=== PATIENT | male | born 1945 | race Caucasian/White ===

== ENCOUNTER 2018-08-12 15:09 | Emergency (ER) | payer MEDICARE ==
[~2018-08-12] VITALS: Ht 190.5 cm; Wt 158.8 kg
[~2018-08-12 15:09] MED LIST: ALLOPURINOL100 MG PO; ASPIRIN81 MG PO; DAILY VITAMIN1 EAC3 PO; FISH OIL 1,2001 EACH; GLUCOSAMINE &1 EAC1 PO; HYDROCHLOROTH12.5 M1 PO; TOPROL XL50 MG PO; unknown antibiotic
--- OUTSIDE RECORDS SUMMARY | 2018-08-12 15:14 | XMS REPORT | Summary of Care ---
Author Author [facility] Address Unknown Phone Unavailable Encounter DESIRE Miranda(DORIS) [id number] Date(s): 06/22/17 - 07/21/17 [facility] [place] Encounter Diagnosis Unilateral primary osteoarthritis, right hip (Final) - 07/25/17 Pain in right hip (Final) - Stiffness of right hip, not elsewhere classified (Final) - Muscle weakness (generalized) (Final) - Unsteadiness on feet (Final) - Other abnormalities of gait and mobility (Final) - Muscle weakness (generalized) (Final) - Unsteadiness on feet (Final) - Other abnormalities of gait and mobility (Final) - Discharge Disposition: Home or Self Care Attending Physician: Richard hSaw MD Vital Signs No data available for this section Problem List Condition Effective Dates Status Health Status Informant HTN Active (hypertension)(Confi rmed) Irregular heart Active beat(Confirmed) Nephrolithiasis(Conf Active irmed) Colon Resolved cancer(Confirmed) Obesity(Confirmed) Active RELL (obstructive Active sleep apnea)(Confirmed) Numbness and Active tingling of foot(Confirmed) Allergies, Adverse Reactions, Alerts Substance Reaction Severity Status NKDA Active Medications No data available for this section Results No data available for this section Immunizations Given and Recorded Vaccine Date Status Refusal Reason pneumococcal 13-valent vaccine 02/24/17 Given Procedures Procedure Date Related Diagnosis Body Site Status Laparoscopic sleeve gastrectomy1 02/23/17 Completed Arthroscopic knee operation2 Completed Back fusion Completed Colonoscopy Completed Foot joint operations3 Completed 1with EGD 2BILATERAL 3BILATERAL HAMMER TOES Social History Social History Type Response Exercise 1 Alcohol Past2 Smoking Status Former smoker; Type: Cigarettes; Previous treatment: None; Exposure to Tobacco Smoke None; Cigarette Smoking Last 365 Days No; Reg Smoking Cessation Counseling No; Other Tobacco Frequency quit 2011; entered on: 09/19/17 1WALKS DOGS DAILY. DENIES SOB/CP WITH EXERTION 2CANNOT DRINK CARBONATED BEVERAGES D/T GASTRIC SLEEVE Assessment and Plan No data available for this section
--- OUTSIDE RECORDS SUMMARY | 2018-08-12 15:14 | XMS REPORT | Summary of Care ---
Author Author [facility] Organization [facility] Address Unknown Phone Unavailable Encounter DESIRE Miranda(DORIS) [id number] Date(s): 02/23/17 - 02/24/17 [facility] [address] [facility] provided by [facility] [place] [address]- Discharge Disposition: Home or Self Care Attending Physician: Malik Casillas MD Admitting Physician: Malik Casillas MD Referring Physician: Malik Casillas MD Vital Signs 1 2 3 Most recent to oldest [Reference Range]: 187.96 cm (02/23/17 1:03 PM) 187.96 cm (02/10/17 1:24 PM) Height 97.6 DegF (02/24/17 5:26 AM) 97.6 DegF (02/24/17 12:14 AM) 97.6 DegF (02/23/17 8:03 PM) Temperature Oral [96.4-99.1 DegF] 123/73 mmHg (02/24/17 8:29 AM) 133/75 mmHg (02/24/17 5:26 AM) 134/72 mmHg (02/24/17 12:14 AM) Blood Pressure [90-140/60-90 mmHg] 18 BRMIN (02/24/17 8:29 AM) 18 BRMIN (02/24/17 5:26 AM) 18 BRMIN (02/24/17 12:14 AM) Respiratory Rate [14-20 BRMIN] 57 bpm *LOW* (02/24/17 8:29 AM) 61 bpm (02/24/17 5:26 AM) 65 bpm (02/24/17 12:14 AM) Peripheral Pulse Rate [60-100 bpm] 155.682 kg (02/23/17 1:03 PM) 155.682 kg (02/23/17 6:43 AM) Weight 44.07 m2 (02/23/17 1:03 PM) 44.07 m2 (02/23/17 6:43 AM) Body Mass Index Problem List Condition Effective Dates Status Health Status Informant HTN Active (hypertension)(Confi rmed) Irregular heart Resolved beat(Confirmed) Nephrolithiasis(Conf Active irmed) Obesity(Confirmed) Active RELL (obstructive Active sleep apnea)(Confirmed) Apnea, Resolved sleep(Confirmed) Allergies, Adverse Reactions, Alerts Substance Reaction Severity Status NKDA Active Medications acetaminophen 1,000 mg, 31.23 mL, Route: PO, Drug form: LIQ, Q6Hnow, Dosing Weight 155.682, kg , Start date: 02/23/17 9:00:00 CDT, Duration: 30 day, Stop date: 03/25/17 3:00:0 0 CDT Notes: Max [id number]/day (4 gm/day). (Same as: Tylenol) Start Date: 02/23/17 Stop Date: 02/24/17 Status: Discontinued acetaminophen (ANES) Route: IV, Drug form: INJ, ONCE, Stop date: 02/23/17 8:33:00 CDT Start Date: 02/23/17 Stop Date: 02/23/17 Status: Completed Aleve See Instructions, 220 mg PO, 0 Refill(s) Start Date: 02/23/17 Stop Date: 02/24/17 Status: Discontinued ANES flumazenil 0.2 mg, 2 mL, Route: IVP, Drug form: INJ, PRN, Dosing Weight 155.682, kg, PRN Be nzodiazepine Reversal, Initial dose, Start date: 02/23/17 10:20:00 CDT, Duration : 30 day, Stop date: 03/25/17 10:19:00 CDT Notes: (Same as: Romazicon) Start Date: 02/23/17 Stop Date: 02/23/17 Status: Discontinued ANES HYDROmorphone 0.5 mg, 0.25 mL, Route: IVP, Drug form: INJ, Q5Min, Dosing Weight 155.682, kg, P RN Pain Score 7-10, Start date: 02/23/17 10:20:00 CDT, Duration: 4 doses or time s, Stop date: Limited # of times Notes: Same as: Dilaudid Start Date: 02/23/17 Stop Date: 02/23/17 Status: Discontinued ANES midazolam 1 mg, 1 mL, Route: IVP, Drug form: INJ, Q5Min, Dosing Weight 155.682, kg, PRN An xiety, Start date: 02/23/17 10:20:00 CDT, Duration: 2 doses or times, Stop date: Limited # of times Notes: (Same as: Ni) MEDICATION WASTE Product Size: 2 mgProduct Was cally: ___ mg Start Date: 02/23/17 Stop Date: 02/23/17 Status: Discontinued ANES naloxone 0.4 mg, 1 mL, Route: IVP, Drug form: INJ, Q2MIN, Dosing Weight 155.682, kg, PRN Narcotic Reversal, Start date: 02/23/17 10:20:00 CDT, Duration: 8 doses or times , Stop date: Limited # of times Notes: Same as Narcan Start Date: 02/23/17 Stop Date: 02/23/17 Status: Discontinued ANES ondansetron 4 mg, 2 mL, Route: IVP, Drug form: INJ, ONCE, Dosing Weight 155.682, kg, PRN Oswald sea & Vomiting, Start date: 02/23/17 10:20:00 CDT Notes: (Same as: Carito) MEDICATION WASTE Product Size: 4 mgProduct Was cally: ___ mg Start Date: 02/23/17 Stop Date: 02/23/17 Status: Discontinued ANES oxyCODONE 5 mg, 1 tab, Route: PO, Drug form: TAB, Q4H, Dosing Weight 155.682, kg, PRN Pain Score 4-6, Start date: 02/23/17 10:20:00 CDT, Duration: 30 day, Stop date: 02/26 10:19:00 CDT Notes: (Same as: Roxicodone) Start Date: 02/23/17 Stop Date: 02/23/17 Status: Discontinued cefOXitin (ANES) Route: IV, Drug form: INJ, ONCE, Stop date: 02/23/17 8:33:00 CDT Start Date: 02/23/17 Stop Date: 02/23/17 Status: Completed CeleBREX 200 mg, 2 cap, Route: PO, Drug form: CAP, PRE OP, Start date: 02/23/17 7:00:00 C DT, Duration: 1 day, Stop date: 02/24/17 6:59:00 CDT Notes: NSAID. Please check indication. Not for seizure. (Same As: CeleBREX) Start Date: 02/23/17 Stop Date: 02/23/17 Status: Completed CeleBREX 200 mg, 1 cap, Route: PO, Drug form: CAP, Q12H, Dosing Weight 155.682, kg, Start date: 02/23/17 21:00:00 CDT, Duration: 30 day, Stop date: 03/25/17 9:00:00 CDT Notes: NSAID. Please check indication. Not for seizure. (Same As: CeleBREX) Start Date: 02/23/17 Stop Date: 02/24/17 Status: Discontinued CeleBREX 200 mg, 1 cap, Route: PO, Drug form: CAP, BID, Dosing Weight 155.682, kg, Start date: 02/23/17 9:00:00 CDT, Duration: 30 day, Stop date: 03/24/17 17:00:00 CDT Notes: NSAID. Please check indication. Not for seizure. (Same As: CeleBREX) Start Date: 02/23/17 Stop Date: 02/23/17 Status: Discontinued celecoxib 200 mg, Route: PO, [id number], Dosing Weight 155.682, kg, Start date: 02/23/17 9:00 :00 CDT, Duration: 30 day, Stop date: 03/24/17 21:00:00 CDT Start Date: 02/23/17 Stop Date: 02/23/17 Status: Deleted dexamethasone (ANES) Route: IV, Drug form: INJ, ONCE, Stop date: 02/23/17 8:48:00 CDT Start Date: 02/23/17 Stop Date: 02/23/17 Status: Completed Emend 40 mg, 1 cap, Route: PO, Drug form: CAP, ONCE, Dosing Weight 155.682, kg, Start date: 02/23/17 6:44:00 CDT, Stop date: 02/23/17 6:44:00 CDT Notes: Same as: Emendrestricted to the Hematology/Oncology service for high and moderate emetogenic regimen according to ASCO Guidelines PassthroughOnly for Ch emotherapy-Induced nausea & vomiting Start Date: 02/23/17 Stop Date: 02/23/17 Status: Completed enoxaparin 30 mg, 0.3 mL, Route: SUB-Q, Drug form: INJ, [id number], Dosing Weight 155.682, kg , Start date: 02/23/17 21:00:00 CDT, Duration: 30 day, Stop date: 03/25/17 9:00: 00 CDT Notes: (Same as: Lovenox) Start Date: 02/23/17 Stop Date: 02/24/17 Status: Discontinued fentaNYL (ANES) Route: IV, Drug form: INJ, ONCE, Stop date: 02/23/17 9:05:00 CDT Start Date: 02/23/17 Stop Date: 02/23/17 Status: Completed gabapentin 300 mg, 6 mL, Route: PO, Drug form: SOLN, Q8Hnow, Dosing Weight 155.682, kg, Sta rt date: 02/23/17 9:00:00 CDT, Duration: 30 day, Stop date: 03/25/17 1:00:00 CDT Notes: (Same as: Neurontin) Start Date: 02/23/17 Stop Date: 02/24/17 Status: Discontinued gabapentin 600 mg oral tablet 600 mg, 1 tab, Route: PO, TID, Dosing Weight 155.682, kg, Start date: 02/23/17 9 :00:00 CDT, Duration: 30 day, Stop date: 03/24/17 17:00:00 CDT Start Date: 02/23/17 Stop Date: 02/23/17 Status: Discontinued glycopyrrolate (ANES) Route: IV, Drug form: INJ, ONCE, Stop date: 02/23/17 8:54:00 CDT Start Date: 02/23/17 Stop Date: 02/23/17 Status: Completed heparin 5,000 unit, 1 mL, Route: SUB-Q, Drug form: INJ, PRE OP, Start date: 02/23/17 7:0 0:00 CDT, Duration: 1 day, Stop date: 02/24/17 6:59:00 CDT Notes: porcine heparin Start Date: 02/23/17 Stop Date: 02/23/17 Status: Completed hydromorphone (ANES) Route: IV, Drug form: INJ, ONCE, Stop date: 02/23/17 10:05:00 CDT Start Date: 02/23/17 Stop Date: 02/23/17 Status: Completed ketOROLAC (ANES) IV, ONCE Start Date: 02/23/17 Stop Date: 02/23/17 Status: Completed Lactated Ringers 1,000 mL 1,000 mL, Rate: 125 ml/hr, Infuse over: 8 hr, Route: IV, Dosing Weight 155.682 k g, Total Volume: 1,000, Start date: 02/23/17 10:00:00 CDT, Duration: 30 day, Sto p date: 03/25/17 9:59:00 CDT Start Date: 02/23/17 Stop Date: 02/24/17 Status: Discontinued lidocaine (ANES) Route: IV, Drug form: INJ, ONCE, Stop date: 02/23/17 9:05:00 CDT Start Date: 02/23/17 Stop Date: 02/23/17 Status: Completed LR 1000 mL INJ (ANES) Route: IV, Total Volume: 1,000, Start date: 02/23/17 7:40:00 CDT, Stop date: 8:40:00 CDT Start Date: 02/23/17 Stop Date: 02/23/17 Status: Completed magnesium sulfate (ANES) (ANES) Route: IV, Drug form: INJ, Start date: 02/23/17 8:30:00 CDT, Stop date: 02/23/17 9:30:00 CDT Start Date: 02/23/17 Stop Date: 02/23/17 Status: Completed Mefoxin 2 gm, Route: IVPB, Drug form: INJ, PRE OP, Start date: 02/23/17 7:00:00 CDT, Dur ation: 1 day, Stop date: 02/24/17 6:59:00 CDT, ABX Indication: Surgical Prophyla xis Notes: (Same As: Mefoxin) MEDICATION WASTE Product Size: 2000 mgProduct Wasted: ___ mg Start Date: 02/23/17 Stop Date: 02/23/17 Status: Completed metoprolol (ANES) Route: IV, Drug form: INJ, ONCE, Stop date: 02/23/17 10:21:00 CDT Start Date: 02/23/17 Stop Date: 02/23/17 Status: Completed midazolam (ANES) Route: IV, Drug form: SOLN, ONCE, Stop date: 02/23/17 9:05:00 CDT Start Date: 02/23/17 Stop Date: 02/23/17 Status: Completed neostigmine (ANES) Route: IV, Drug form: INJ, ONCE, Stop date: 02/23/17 10:05:00 CDT Start Date: 02/23/17 Stop Date: 02/23/17 Status: Completed Neurontin 300 mg, 1 cap, Route: PO, Drug form: CAP, PRE OP, Start date: 02/23/17 7:00:00 C DT, Duration: 1 day, Stop date: 02/24/17 6:59:00 CDT Notes: (Same as: Neurontin) Start Date: 02/23/17 Stop Date: 02/23/17 Status: Completed Ofirmev 1 gm, 100 mL, Route: IV, Drug form: INJ, PRE OP, Start date: 02/23/17 7:00:00 CD T, Duration: 1 day, Stop date: 02/24/17 6:59:00 CDT Notes: Infuse over 15 minutesDo not exceed 4gm/day of acetaminophen MEDICAT ION WASTE Product Size: 1000 mgProduct Wasted: ___ mg Start Date: 02/23/17 Stop Date: 02/23/17 Status: Discontinued ondansetron 4 mg, 2 mL, Route: IVP, Drug form: INJ, Q6H, Dosing Weight 155.682, kg, Start da te: 02/23/17 12:00:00 CDT, Duration: 30 day, Stop date: 03/25/17 6:00:00 CDT Notes: (Same as: Zofran) MEDICATION WASTE Product Size: 4 mgProduct Was cally: ___ mg Start Date: 02/23/17 Stop Date: 02/24/17 Status: Discontinued ondansetron (ANES) Route: IV, Drug form: INJ, ONCE, Stop date: 02/23/17 10:05:00 CDT Start Date: 02/23/17 Stop Date: 02/23/17 Status: Completed phenylephrine (ANES) Route: IV, Drug form: INJ, ONCE, Stop date: 02/23/17 8:39:00 CDT Start Date: 02/23/17 Stop Date: 02/23/17 Status: Completed pneumococcal 13-valent vaccine 0.5 mL, Route: IM, Drug Form: INJ, Daily, Start date: 02/24/17 9:00:00 CDT, Dura tion: 1 doses or times, Stop date: 02/24/17 9:00:00 CDT Notes: Shake well prior to use (Same as: Prevnar 13) Start Date: 02/24/17 Stop Date: 02/24/17 Status: Completed propofol (ANES) Route: IV, Drug form: INJ, ONCE, Stop date: 02/23/17 9:05:00 CDT Start Date: 02/23/17 Stop Date: 02/23/17 Status: Completed Protonix 40 mg, Route: IVP, Drug form: INJ, Daily, Dosing Weight 155.682, kg, Start date: 02/24/17 16:00:00 CDT, Duration: 30 day, Stop date: 03/26/17 9:00:00 CDT Notes: For IV push reconstitute with 10 ml 0.9% sodium chloride and push over 2 minutes. (Same as: Protonix) Start Date: 02/24/17 Stop Date: 02/24/17 Status: Canceled remove patch 1 patch, Route: TOP, Drug form: ERFILM, ONCALL, Start date: 02/23/17 7:00:00 CDT , Duration: 30 day, Stop date: 03/25/17 6:59:00 CDT Notes: Remove old patch before application of new patch. Start Date: 02/23/17 Stop Date: 02/24/17 Status: Discontinued rocuronium (ANES) Route: IV, Drug form: INJ, ONCE, Stop date: 02/23/17 9:05:00 CDT Start Date: 02/23/17 Stop Date: 02/23/17 Status: Completed scopolamine 1 patch, Route: TOP, Drug form: ERFILM, PRE OP, Start date: 02/23/17 7:00:00 CDT , Duration: 1 day, Stop date: 02/24/17 6:59:00 CDT Notes: Change patch every 72 hours (Same as: Transderm-Scop) Start Date: 02/23/17 Stop Date: 02/24/17 Status: Discontinued scopolamine 1.5 mg transdermal film 1 patch, Route: TOP, Drug Form: ERFILM, Dosing Weight 155.682, kg, PRE OP, Start date: 02/23/17 7:00:00 CDT, Duration: 30 day, Stop date: 03/25/17 6:59:00 CDT Start Date: 02/23/17 Stop Date: 02/23/17 Status: Completed sodium chloride 0.9% 100 ml INJ (ANES) + dexmedetomidine (ANES) (ANES) Route: IV, Drug form: INJ, Start date: 02/23/17 8:00:00 CDT, Stop date: 02/23/17 9:00:00 CDT Start Date: 02/23/17 Stop Date: 02/23/17 Status: Completed sodium chloride 0.9% 100 ml INJ (ANES) + ketAMINE (ANES) (ANES) Route: IV, Drug form: INJ, Start date: 02/23/17 8:00:00 CDT, Stop date: 02/23/17 9:00:00 CDT Start Date: 02/23/17 Stop Date: 02/23/17 Status: Deleted sodium chloride 0.9% 100 ml INJ (ANES) + ketAMINE (ANES) (ANES) Route: IV, Drug form: INJ, Start date: 02/23/17 8:00:00 CDT, Stop date: 02/23/17 9:00:00 CDT Start Date: 02/23/17 Stop Date: 02/23/17 Status: Completed Toprol-XL 50 mg oral tablet, extended release 50 mg, 1 tab, Route: PO, Drug form: ERTAB, Daily, Start date: 02/24/17 9:00:00 C DT, Duration: 30 day, Stop date: 03/25/17 9:00:00 CDT Notes: (Same as: Toprol XL) May split tab, but do not crush. Start Date: 02/24/17 Stop Date: 02/24/17 Status: Discontinued tramadol 100 mg, 2 tab, Route: PO, Drug form: TAB, Q6H, Dosing Weight 155.682, kg, PRN Pa in Score 6-10, Start date: 02/23/17 8:22:00 CDT, Duration: 30 day, Stop date: 8:21:00 CDT Notes: Not to exceed 400mg/day. (Same As: Ultram) Start Date: 02/23/17 Stop Date: 02/24/17 Status: Discontinued tramadol 50 mg oral tablet 50 mg=1 tab, PO, Q6H, PRN Pain Score 6-10, X 5 day, # 20 tab, 0 Refill(s) Start Date: 02/24/17 Stop Date: 03/01/17 Status: Ordered Tylenol with Codeine 120 mg-12 mg/5 mL oral liquid 15 ml, PO, Q6H, PRN Pain, X 7 day, # 420 mL, 0 Refill(s) Start Date: 02/24/17 Stop Date: 03/03/17 Status: Ordered Zofran ODT 4 mg oral tablet, disintegrating 4 mg=1 tab, PO, BID, PRN Nausea and Vomiting, Dissolve tab under tongue, # 14 ta b, 0 Refill(s) Start Date: 02/24/17 Stop Date: 03/03/17 Status: Ordered Results BLOOD BANK RESULTS Most recent to 1 oldest [Reference Range]: ABO/Rh A POS *Unknown* (02/23/17 5:52 AM) Antibody Scrn Negative (02/23/17 5:52 AM) ELECTROLYTES Most recent to 1 2 oldest [Reference Range]: Sodium Lvl [135-145 139 mEq/L 142 mEq/L mEq/L] (02/24/17 4:25 AM) (02/10/17 1:55 PM) Potassium Lvl 3.9 mEq/L 4.1 mEq/L [3.5-5.1 mEq/L] (02/24/17 4:25 AM) (02/10/17 1:55 PM) Chloride Lvl [95-109 107 mEq/L 103 mEq/L mEq/L] (02/24/17 4:25 AM) (02/10/17 1:55 PM) CO2 [24-32 mEq/L] 24 mEq/L 29 mEq/L (02/24/17 4:25 AM) (02/10/17 1:55 PM) AGAP [10.0-20.0 11.9 mEq/L 14.1 mEq/L mEq/L] (02/24/17 4:25 AM) (02/10/17 1:55 PM) CHEM PANEL Most recent to 1 2 oldest [Reference Range]: Creatinine Lvl 0.80 mg/dL 0.84 mg/dL [0.50-1.40 mg/dL] (02/24/17 4:25 AM) (02/10/17 1:55 PM) eGFR 91 mL/min/1.73m2 1 88 mL/min/1.73m2 2 *NA* *NA* (02/24/17 4:25 AM) (02/10/17 1:55 PM) BUN [7-22 mg/dL] 15 mg/dL 19 mg/dL (02/24/17 4:25 AM) (02/10/17 1:55 PM) B/C Ratio [6-25] 23 (02/10/17 1:55 PM) Glucose Lvl [70-99 123 mg/dL 68 mg/dL mg/dL] *HI* *LOW* (02/24/17 4:25 AM) (02/10/17 1:55 PM) Total Protein 7.4 g/dL [6.4-8.4 g/dL] (02/10/17 1:55 PM) Albumin Lvl [3.5-5.0 3.7 g/dL g/dL] (02/10/17 1:55 PM) Globulin [2.7-4.2 3.7 g/dL g/dL] (02/10/17 1:55 PM) A/G Ratio [0.7-1.6] 1.0 (02/10/17 1:55 PM) Calcium Lvl 8.4 mg/dL 8.8 mg/dL [8.5-10.5 mg/dL] *LOW* (02/10/17 1:55 PM) (02/24/17 4:25 AM) ALT [0-65 unit/L] 27 unit/L (02/10/17 1:55 PM) AST [0-37 unit/L] 16 unit/L (02/10/17 1:55 PM) Alk Phos [39-136 76 unit/L unit/L] (02/10/17 1:55 PM) Bili Total [0.2-1.3 0.5 mg/dL mg/dL] (02/10/17 1:55 PM) 1Result Comment: The eGFR is calculated using the CKD-EPI formula. In most young, healthy individuals the eGFR will be >90 mL/min/1.73m2. The eGFR declines with age. An eGFR of 60-89 may be normal in some populations, particularly the elderly, for whom the CKD-EPI formula has not been extensively validated. Use of the eGFR is not recommended in the following populations: Individuals with unstable creatinine concentrations, including patients and those with serious co-morbid conditions. Patients with extremes in muscle mass or diet. The data above are obtained from the National Kidney Disease Education Program ( NKDEP) which additionally recommends that when the eGFR is used in patients with extremes of body mass index for purposes of drug dosing, the eGFR should be mul tiplied by the estimated BMI. 2Result Comment: The eGFR is calculated using the CKD-EPI formula. In most young, healthy individuals the eGFR will be >90 mL/min/1.73m2. The eGFR declines with age. An eGFR of 60-89 may be normal in some populations, particularly the elderly, for whom the CKD-EPI formula has not been extensively validated. Use of the eGFR is not recommended in the following populations: Individuals with unstable creatinine concentrations, including patients and those with serious co-morbid conditions. Patients with extremes in muscle mass or diet. The data above are obtained from the National Kidney Disease Education Program ( NKDEP) which additionally recommends that when the eGFR is used in patients with extremes of body mass index for purposes of drug dosing, the eGFR should be mul tiplied by the estimated BMI. HEMATOLOGY Most recent to 1 2 oldest [Reference Range]: WBC [3.7-10.4 K/CMM] 11.9 K/CMM 8.6 K/CMM *HI* (02/10/17 1:55 PM) (02/24/17 4:25 AM) RBC [4.70-6.10 4.92 M/CMM 5.57 M/CMM M/CMM] (02/24/17 4:25 AM) (02/10/17 1:55 PM) Hgb [14.0-18.0 g/dL] 15.1 g/dL 17.1 g/dL (02/24/17 4:25 AM) (02/10/17 1:55 PM) Hct [42.0-54.0 %] 44.4 % 49.6 % (02/24/17 4:25 AM) (02/10/17 1:55 PM) MCV [80.0-94.0 fL] 90.3 fL 89.0 fL (02/24/17 4:25 AM) (02/10/17 1:55 PM) MCH [27.0-31.0 pg] 30.6 pg 30.8 pg (02/24/17 4:25 AM) (02/10/17 1:55 PM) MCHC [32.0-36.0 33.9 g/dL 34.6 g/dL g/dL] (02/24/17 4:25 AM) (02/10/17 1:55 PM) RDW [11.5-14.5 %] 13.4 % 13.3 % (02/24/17 4:25 AM) (02/10/17 1:55 PM) Platelet [133-450 186 K/CMM 196 K/CMM K/CMM] (02/24/17 4:25 AM) (02/10/17 1:55 PM) MPV [7.4-10.4 fL] 7.5 fL 8.0 fL (02/24/17 4:25 AM) (02/10/17 1:55 PM) Segs [45.0-75.0 %] 72.8 % 51.0 % (02/24/17 4:25 AM) (02/10/17 1:55 PM) Bands [0.0-11.0 %] 0.0 % (02/10/17 1:55 PM) Lymphocytes 15.8 % 38.0 % [20.0-40.0 %] *LOW* (02/10/17 1:55 PM) (02/24/17 4:25 AM) Atypical Lymphs 0.0 % [<=0.0 %] (02/10/17 1:55 PM) Monocytes [2.0-12.0 11.2 % 9.0 % %] (02/24/17 4:25 AM) (02/10/17 1:55 PM) Eosinophils [0.0-4.0 1.0 % %] (02/10/17 1:55 PM) Basophils [0.0-1.0 0.2 % 1.0 % %] (02/24/17 4:25 AM) (02/10/17 1:55 PM) Segs-Bands # 8.7 K/CMM 4.4 K/CMM [1.5-8.1 K/CMM] *HI* (02/10/17 1:55 PM) (02/24/17 4:25 AM) Lymphocytes # 1.9 K/CMM 3.3 K/CMM [1.0-5.5 K/CMM] (02/24/17 4:25 AM) (02/10/17 1:55 PM) Monocytes # [0.0-0.8 1.3 K/CMM 0.8 K/CMM K/CMM] *HI* (02/10/17 1:55 PM) (02/24/17 4:25 AM) Eosinophils # 0.1 K/CMM [0.0-0.5 K/CMM] (02/10/17 1:55 PM) Basophils # [0.0-0.2 0.1 K/CMM K/CMM] (02/10/17 1:55 PM) Tot Cell Ct 100 *NA* (02/10/17 1:55 PM) RBC Morph Normal (02/10/17 1:55 PM) Plt Morph Normal (02/10/17 1:55 PM) Immunizations Given and Recorded Vaccine Date Status Refusal Reason pneumococcal 13-valent vaccine 02/24/17 Given Procedures Procedure Date Related Diagnosis Body Site Laparoscopic sleeve gastrectomy1 02/23/17 Arthroscopic knee operation Back fusion Colonoscopy Foot joint operations 1with EGD Social History Social History Type Response Alcohol Current, Type Beer. Frequency: 1-2 times per month. Smoking Status Former smoker; Type: Cigarettes; Previous treatment: None; Exposure to Tobacco Smoke None; Other Tobacco Frequency quit 2011; Cigarette Smoking Last 365 Days Yes; Reg Smoking Cessation Counseling No Assessment and Plan Extracted from: Title: Clinical Document Author: Malik Casillas MD Date: 02/23/17 PREOPERATIVE DIAGNOSIS: 1. Morbid obesity. 2. Obstructive sleep apnea. POSTOPERATIVE DIAGNOSIS: 1. Morbid obesity. 2. Obstructive sleep apnea. PROCEDURE: 1. Laparoscopic sleeve gastrectomy. 2. EGD. SURGEON: Dr. Malik Casillas. TOP STEEP TENDER: Dr. Jomar Linder. INDICATIONS FOR PROCEDURE: This is a patient with a long history of morbid obesity who had a BMI of 46 upon consultation with our group. The patient has failed medical weight management and, after going through the lengthy the educational process at our clinic, has elected to undergo a sleeve gastrectomy. PROCEDURE IN DETAIL: Because no qualified resident was available, I requested a fellow assist in the case. The patient was brought to the operating room, placed supine on the operating table, and was then sedated, intubated, and placed under general endotracheal anesthesia. The patient s abdomen was prepped and draped in standard surgical fashion and then entered using a 5-mm Optiview port in the right subcostal margin. Pneumoperitoneum was achieved and the entire abdomen was inspected with no gross abnormality identified. Additional trocars were placed with a 5-mm trocar just left of the midline superior to the umbilicus. A 15-mm trocar just right of the midline superior to the umbilicus and a 5-mm lateral right trocar. Attention was first turned to the greater curvature where the omentum was systematically divided from the gastric curvature using an energy device. This was carried out superiorly to the cardia where attention was then turned to the posterior adhesions continuing the dissection from inferior to superior. I then completed taking down the short gastrics and the posterior lateral gastric adhesions. A 36-Colombian sizing gastric tube was inserted into the stomach. Once this was complete, I started with the first staple fire without buttress using a Medtronic tristapler at * cm from the antrum. The sleeve gastrectomy was created with sequential staple fires. The last staple fire was conducted just lateral to the angle of His. The stomach was then removed through the 15-mm port site after mild dilation. The site was then sutured closed using a single interrupted 0 Vicryl suture passed with a Dontrell-Nicholas in a [id number] fashion. We then placed the sleeve gastrectomy under water and inserted an EGD through the esophagus and into the gastric sleeve. There was no air leak identified. The sleeve was a nice tubular structure approximately the size of the esophagus throughout the entire gastrectomy. All incisions were closed using 4-0 Monocryl and covered in Dermabond. The patient was awoken from anesthesia, extubated, and brought to the recovery room in good condition. INTRAVENOUS FLUIDS: Please see anesthesia records for IV fluids. ESTIMATED BLOOD LOSS: Min. COMPLICATIONS: None. DISPOSITION: Good to the recovery room.
--- OUTSIDE RECORDS SUMMARY | 2018-08-12 15:14 | XMS REPORT | Summary of Care ---
Author Author [facility] Organization [facility] Address Unknown Phone Unavailable Encounter DESIRE Miranda(DORIS) [id number] Date(s): 06/06/17 - 06/06/17 [facility] [address] [address]- [phone] Discharge Disposition: Home or Self Care Attending Physician: Richard Shaw MD Referring Physician: Richard Shaw MD Vital Signs Most recent to 1 2 oldest [Reference Range]: Height 187.96 cm (06/06/17 11:00 AM) Blood Pressure 137/81 mmHg 134/85 mmHg [90-140/60-90 mmHg] (06/06/17 11:38 AM) (06/06/17 11:00 AM) Respiratory Rate 17 BRMIN 18 BRMIN [14-20 BRMIN] (06/06/17 11:38 AM) (06/06/17 11:00 AM) Peripheral Pulse 61 bpm 62 bpm Rate [60-100 bpm] (06/06/17 11:38 AM) (06/06/17 11:00 AM) Weight 129.091 kg (06/06/17 11:00 AM) Body Mass Index 36.54 m2 (06/06/17 11:00 AM) Problem List Condition Effective Dates Status Health [...] Procedures Procedure Date Related Diagnosis Body Site Injection procedure for hip arthrography; 06/06/17 without anesthesia Laparoscopic sleeve gastrectomy1 02/23/17 Arthroscopic knee operation Back fusion Colonoscopy Foot joint operations 1with EGD Social History Social History Type Response Alcohol Current, Type Beer. Frequency: 1-2 times per month. Smoking Status Former smoker; Type: Cigarettes; Previous treatment: None; Exposure to Tobacco Smoke None; Cigarette Smoking Last 365 Days Yes; Reg Smoking Cessation Counseling No; Other Tobacco Frequency quit 2011; Assessment and Plan No data available for this section
--- OUTSIDE RECORDS SUMMARY | 2018-08-12 15:14 | XMS REPORT | Continuity of Care Document ---
Author Author [facility] Organization Interface Address Unknown Phone Unavailable Problems Problem Status Onset Date Classification Date Reported Comments Source LEFT KNEE Active 04/24/2018 [facility] [place] RIGHT KNEE OSTEOARTHRITIS Active 03/09/2018 [facility] RIGHT KNEE Active 01/23/2018 [facility] KNEE OSTEOARTHRITIS Active 01/15/2018 [facility] Unilateral primary osteoarthritis, right hip 10/05/2017 12/27[facility] OSTEOAR[facility]RITIS R HIP Active 08/17/2017 [facility] M25.551 Active 06/04/2017 [facility] M25.551 RIGHT HIP PAIN Active 06/04/2017 [facility] MORBID OBESITY Active 11/15/2016 [facility] UNK Active 08/17/2016 [facility] RIGHT HIP Active 05/26/2015 [facility] [place] HTN (<span [id number]">Confirmed</span>) Active Problem 12/27/2017 [facility] Irregular heart beat Active Problem 12/27/2017 [facility] [place],[facility] Nephrolithiasis Active Problem 12/27/2017 [facility] Obesity Active Problem 12/27/2017 [facility] RELL (<span ID="[id number]">Confirmed</span>) Active Problem 12/27/2017 [facility] Apnea, sleep Resolved Problem 06/09/2017 [facility] Unsteadiness on feet 11/28/2017 [facility] [place] Other abnormalities of gait and mobility 11/28/2017 [facility] [place] Pain in right hip 11/28/2017 [facility] [place] Stiffness of right hip, not elsewhere classified 11/28/2017 [facility] [place] Muscle weakness 11/28/2017 [facility] [place] Morbid obesity due to excess calories 12/27/2017 [facility] Acute posthemorrhagic anemia 12/27/2017 [facility] Body mass index 32.0-32.9, adult 12/27/2017 [facility] Obstructive sleep apnea (pediatric) 12/27/2017 [facility] Essential hypertension 12/27/2017 [facility] Osteophyte, right hip 12/27/2017 [facility] Bariatric surgery status 12/27/2017 [facility] Gastro-esophageal reflux disease without esophagitis 12/27/2017 [facility] Cardiac arrhythmia, unspecified 12/27/2017 [facility] Personal history of nicotine dependence 12/27/2017 [facility] Colon cancer Resolved Problem 12/27/2017 [facility] [place], [facility] Numbness and tingling of foot Active Problem 12/27/2017 [facility] [place], [facility] ENCOUNTER FOR SCREENING FOR MALIGNANT NE Active [facility] UNILATERAL PRIMARY OSTEOARTHRITIS, RIGHT Active [facility] [place] PAIN IN RIGHT HIP [facility] [place] STIFFNESS OF RIGHT HIP, NOT ELSEWHERE CL Active [facility] [place] UNSTEADINESS ON FEET Active [facility] [place] OTHER ABNORMALITIES OF GAIT AND MOBILITY Active [facility] [place] MUSCLE WEAKNESS (GENERALIZED) Active [facility] [place] UNILATERAL PRIMARY OSTEOARTHRITIS, RIGHT Active [facility] [place] STIFFNESS OF UNSPECIFIED JOINT, NOT ELSE Active [facility] [place] DIFFICULTY IN WALKING, NOT ELSEWHERE CLA Active [facility] [place] PRESENCE OF LEFT ARTIFICIAL KNEE JOINT Active [facility] [place] UNILATERAL PRIMARY OSTEOARTHRITIS, LEFT Active [facility] [place] PAIN IN LEFT KNEE Active [facility] [place] WEAKNESS Active [facility] [place] Medications Medication Details Route Status Patient Instructions Ordering Provider Order Date Source rivaroxaban 10 MG Oral Tablet [Xarelto] 10 mg=1 tab, PO, Daily, # 21 tab, 0 Refill(s) Active 09/21/2017 [facility] tramadol hydrochloride 50 MG Oral Tablet 50 mg=1 tab, PO, Q4H, PRN Pain Score 1-3, # 60 tab, 0 Refill(s) No Longer Active 09/20/2017 [facility] gabapentin 300 MG Oral Capsule 300 mg=1 cap, PO, TID, # 90 cap, 0 Refill(s) Active 09/20/2017 [facility] Docusate Sodium 50 MG / sennosides, [facility] 8.6 MG Oral Tablet 1 tab, PO, Daily, # 60 tab, 0 Refill(s) No Longer Active 09/20/2017 [facility] dexamethasone 10 mg, 1 mL, Route: IVP, Drug form: INJ, ONCE, Dosing Weight 119.636, kg, POD #1, Start date: 09/20/17 10:01:00 CDT, Stop date: 09/20/17 10:01:00 CDTNotes: MEDICATION WASTE Product Size: 10 mg Product Wasted: ___ mg Inactive 09/20/2017 [facility] 24 HR Metoprolol Tartrate 50 MG Extended Release Tablet [Toprol] 50 mg, 1 tab, Route: PO, Drug form: ERTAB, Daily, Start date: 09/20/17 9:00:00 CDT, Duration: 30 day, Stop date: 10/19/17 9:00:00 CDTNotes: (Same as: Toprol XL) May split tab, but do not crush. Inactive 09/20/2017 [facility] POLYETHYLENE GLYCOL 3350 17 gm, 1 pkt, Route: PO, Drug form: PWDR, Daily, Dosing Weight 119.636, kg, Hold for loose stools., Start date: 09/20/17 9:00:00 CDT, Duration: 30 day, Stop date: 10/19/17 9:00:00 CDTNotes: Dissolve in 8 oz of water or juice. (Same as: Miralax) Inactive 09/20/2017 [facility] Docusate Sodium 50 MG / sennosides, CHCF 8.6 MG Oral Tablet 1 tab, Route: PO, Drug Form: TAB, Dosing Weight 119.636, kg, Daily, Start date: 09/20/17 9:00:00 CDT, Duration: 30 day, Stop date: 10/19/17 9:00:00 CDTNotes: (Same as Senokot-S) Equiv. to Rosanne-Colace. Inactive 09/20/2017 [facility] metoprolol extended release 12.5 mg, 0.5 tab, Route: PO, Drug form: ERTAB, Daily, Start date: 09/20/17 9:00:00 CDT, Duration: 30 day, Stop date: 10/19/17 9:00:00 CDTNotes: (Same as: Toprol XL) Do Not Crush Inactive 09/20/2017 [facility] Aspirin 325 MG Enteric Coated Tablet 325 mg, 1 tab, Route: PO, Drug form: ECTAB, BID, Dosing Weight 119.636, kg, Start date: 09/20/17 8:00:00 CDT, Duration: 30 day, Stop date: 10/19/17 17:00:00 CDTNotes: (Do Not Crush) Do not crush or chew. Inactive 09/20/2017 [facility] pantoprazole 40 mg, 1 tab, Route: PO, Drug form: ECTAB, Before Breakfast, Dosing Weight 119.636, kg, Start date: 09/20/17 7:30:00 CDT, Duration: 30 day, Stop date: 10/19/17 7:30:00 CDTNotes: Tablet should not be chewed or crushed. (Same as: Protonix) Inactive 09/20/2017 [facility] Celebrex 200 mg, 1 cap, Route: PO, Drug form: CAP, BID, Dosing Weight 119.636, kg, Begin evening of surgery. Do not give if sulfa allergy or renal disease., Start date: 09/19/17 21:00:00 CDT, Duration: 48 hr, Stop date: 09/21/17 17:00:00 CDTNotes: NSAID. Please check indication. Not for seizure. (Same As: CeleBREX) No Longer Active 09/20/2017 [facility] Vancomycin 1,000 mg, Route: IVPB, Q12H, Dosing Weight 119.636, kg, Time Critical Medication, Start date: 09/19/17 18:30:00 CDT, Duration: 2 doses or times, Stop date: 09/20/17 6:30:00 CDT, Pharmacy to adjust dose for renal function, ABX Indication: Surgical Prop...Notes: TIME CRITICAL MEDICATION (Same As: Vancocin) Infusion rate 2001 mg: infuse over 2.5 hours For adult patients only: Round to nearest 250 mg per Medical Staff approval MEDICATION WASTE Product Size: 1000 mg Product Wasted: ___ mg No Longer Active 09/19/2017 [facility] Lyrica 50 mg, 1 cap, Route: PO, Drug form: CAP, Q8H, Dosing Weight 119.636, kg, Start date: 09/19/17 16:00:00 CDT, Duration: 30 day, Stop date: 10/19/17 8:00:00 CDTNotes: Same as Lyrica No Longer Active 09/19/2017 [facility] Cefazolin 1 gm, Route: IVPB, Drug form: PDR/INJ, Q6H-02, Dosing Weight 119.636, kg, Start date: 09/19/17 14:00:00 CDT, Duration: 3 doses or times, Stop date: 09/20/17 2:00:00 CDT, ABX Indication: Surgical Prophyl axisNotes: (Same As: Schuyler Manning) MEDICATION WASTE Product Size: 1000 mg Product Wasted: ___ mg No Longer Active 09/19/2017 [facility] Methocarbamol 500 mg, 1 tab, Route: PO, Drug form: TAB, TID, Dosing Weight 119.636, kg, PRN Muscle Spasms, Start date: 09/19/17 9:49:00 CDT, Duration: 30 day, Stop date: 10/19/17 9:48:00 CDTNotes: (Same as:Robaxin) No Longer Active 09/19/2017 [facility] Ondansetron 4 mg, 2 mL, Route: IV, Drug form: INJ, Q4H, Dosing Weight 119.636, kg, PRN Nausea, Start date: 09/19/17 9:49:00 CDT, Duration: 30 day, Stop date: 10/19/17 9:48:00 CDTNotes: (Same as: Zofran) MEDICATION WASTE Product Size: 4 mg Product Wasted: ___ mg No Longer Active 09/19/2017 [facility] Oxycodone Hydrochloride 5 MG Oral Tablet 10 mg, 2 tab, Route: PO, Drug form: TAB, Q4H, Dosing Weight 119.636, kg, PRN Pain Score 7-10, Start date: 09/19/17 9:49:00 CDT, Duration: 30 day, Stop date: 10/19/17 9:48:00 CDTNotes: (Same as: Roxicodone) No Longer Active 09/19/2017 [facility] Morphine 1 mg, 0.1 mL, Route: IVP, Drug form: INJ, Q3H, Dosing Weight 119.636, kg, PRN Pain Score 7-10, If not responding to oral therapy or unable to tolerate PO., Start date: 09/19/17 9:49:00 CDT, Duration: 30 day, Stop date: 10/19/17 9:48:00 CDTNotes: (Same as:MORPhine Sulfate) No Longer Active 09/19/2017 [facility] Melatonin 3 mg, 1 tab, Route: PO, Drug form: TAB, Bedtime, Dosing Weight 119.636, kg, PRN Insomnia, Start date: 09/19/17 9:49:00 CDT, Duration: 30 day, Stop date: 10/19/17 9:48:00 CDTNotes: (Same as: Melatonin) No Longer Active 09/19/2017 [facility] Acetaminophen 650 mg, 2 tab, Route: PO, Drug form: TAB, Q6H, Dosing Weight 119.636, kg, PRN For Temp > 100.4 F, Start date: 09/19/17 9:49:00 CDT, Duration: 30 day, Stop date: 10/19/17 9:48:00 CDTNotes: Do not exce ed 4 gm/day. (Same as: Tylenol) No Longer Active 09/19/2017 [facility] Dexamethasone 10 mg, 1 mL, Route: IVP, Drug form: INJ, ONCE, Dosing Weight 119.636, kg, POD #1, Start date: 09/19/17 9:49:00 CDT, Stop date: 09/19/17 9:49:00 CDTNotes: MEDICATION WASTE Product Size: 10 mg Product Wasted: ___ mg Inactive 09/19/2017 [facility] Milk of Magnesia 30 ml, Route: PO, Drug Form: SUSP, Dosing Weight 119.636, kg, Q6H, PRN as needed for constipation, Start date: 09/19/17 9:49:00 CDT, Duration: 30 day, Stop date: 10/19/17 9:48:00 CDTNotes: (Same as: Milk of Magnesia, MOM) No Longer Active 09/19/2017 [facility] Lactated Ringers IV 1,000 mL 1,000 mL, Rate: 75 ml/hr, Infuse over: 13.3 hr, Route: IV, Dosing Weight 119.636 kg, Total Volume: 1,000, Start date: 09/19/17 9:49:00 CDT, Duration: 30 day, Stop date: 10/19/17 9:48:00 CDT, 2.53, m2 No Longer Active 09/19/2017 [facility] Tramadol 50 mg, 1 tab, Route: PO, Drug form: TAB, Q4H, Dosing Weight 119.636, kg, PRN Pain Score 1-3, Start date: 09/19/17 9:49:00 CDT, Duration: 30 day, Stop date: 10/19/17 9:48:00 CDTNotes: Not to exceed 40 0mg/day. (Same As: Ultram) No Longer Active 09/19/2017 [facility] Acetaminophen 325 MG / Hydrocodone Bitartrate 10 MG Oral Tablet [Redgranite 10/325] 1 tab, Route: PO, Drug Form: TAB, Dosing Weight 119.636, kg, Q4H, PRN Pain Score 4-6, Start date: 09/19/17 9:49:00 CDT, Duration: 30 day, Stop date: 10/19/17 9:48:00 CDTNotes: Do not exceed 4gm/day of acetaminophen. (Same as: Redgranite 325/10) No Longer Active 09/19/2017 [facility] ondansetron (ANES) Route: IV, Drug form: INJ, ONCE, Stop date: 09/19/17 9:09:00 CDT Inactive 09/19/2017 [facility] phenylephrine (ANES) Route: IV, Drug form: INJ, ONCE, Stop date: 09/19/17 8:29:00 CDT Inactive 09/19/2017 [facility] tranexamic acid (ANES) Route: IV, Drug form: INJ, ONCE, Stop date: 09/19/17 8:19:00 CDT Inactive 09/19/2017 [facility] dexamethasone (ANES) Route: IV, Drug form: INJ, ONCE, Stop date: 09/19/17 8:19:00 CDT Inactive 09/19/2017 [facility] rocuronium (ANES) Route: IV, Drug form: INJ, ONCE, Stop date: 09/19/17 8:19:00 CDT Inactive 09/19/2017 [facility] fentaNYL (ANES) Route: IV, Drug form: INJ, ONCE, Stop date: 09/19/17 8:19:00 CDT Inactive 09/19/2017 [facility] lidocaine (ANES) Route: IV, Drug form: INJ, ONCE, Stop date: 09/19/17 8:19:00 CDT Inactive 09/19/2017 [facility] midazolam (ANES) Route: IV, Drug form: SOLN, ONCE, Stop date: 09/19/17 8:19:00 CDT Inactive 09/19/2017 [facility] propofol (ANES) Route: IV, Drug form: INJ, ONCE, Stop date: 09/19/17 8:19:00 CDT Inactive 09/19/2017 [facility] succinylcholine (ANES) Route: IV, Drug form: INJ, ONCE, Stop date: 09/19/17 8:19:00 CDT Inactive 09/19/2017 [facility] vancomycin (ANES) Route: IV, Drug form: INJ, ONCE, Stop date: 09/19/17 8:14:00 CDT Inactive 09/19/2017 [facility] ePHEDrine (ANES) Route: IV, Drug form: INJ, ONCE, Stop date: 09/19/17 7:54:00 CDT Inactive 09/19/2017 [facility] ceFAZolin (ANES) Route: IV, Drug form: INJ, ONCE, Stop date: 09/19/17 7:54:00 CDT Inactive 09/19/2017 [facility] Ondansetron 4 mg, 2 mL, Route: IVP, Drug form: INJ, ONCE, Dosing Weight 119.636, kg, PRN Nausea & Vomiting, Start date: 09/19/17 7:45:00 CDTNotes: (Same as: Zofran) MEDICATION WASTE Product Size: 4 mg Product Wasted: ___ mg Inactive 09/19/2017 [facility] Meperidine 12.5 mg, 0.5 mL, Route: IVP, Drug form: INJ, Q30Min, Dosing Weight 119.636, kg, PRN Other -See Comment, For shivering, Start date: 09/19/17 7:45:00 CDT, Duration: 2 doses or times, Stop date: 09/19/17 1 4:00:00 CDTNotes: (Same as: Demerol) "Use Precaution in Elderly, Seizure disorders, and Renal impairment" Inactive 09/19/2017 [facility] Promethazine 6.25 mg, 0.25 mL, Route: IVPB, Drug form: INJ, ONCE, Dosing Weight 119.636, kg, PRN Nausea & Vomiting, Start date: 09/19/17 7:45:00 CDTNotes: Do not give IV push. (Same as: Phenergan) Inactive 09/19/2017 [facility] Naloxone 0.4 mg, 1 mL, Route: IVP, Drug form: INJ, Q2MIN, Dosing Weight 119.636, kg, PRN Narcotic Reversal, Start date: 09/19/17 7:45:00 CDT, Duration: 8 doses or times, Stop date: Limited # of timesNotes: Same as Narcan Inactive 09/19/2017 [facility] Flumazenil 0.2 mg, 2 mL, Route: IVP, Drug form: INJ, PRN, Dosing Weight 119.636, kg, PRN Benzodiazepine Reversal, Initial dose, Start date: 09/19/17 7:45:00 CDT, Stop date: 09/19/17 14:00:00 CDTNotes: (Same as: Romazicon) Inactive 09/19/2017 [facility] Morphine 2 mg, 0.2 mL, Route: IVP, Drug form: INJ, Q5Min, Dosing Weight 119.636, kg, PRN Pain Score 4-6, Start date: 09/19/17 7:45:00 CDT, Duration: 5 doses or times, Stop date: 09/19/17 14:00:00 CDTNotes: (Same as:MORPhine Sulfate) Inactive 09/19/2017 [facility] Hydralazine 10 mg, 0.5 mL, Route: IVP, Drug form: INJ, Q20Min, Dosing Weight 119.636, kg, PRN Elevated BP, Start date: 09/19/17 7:45:00 CDT, Duration: 2 doses or times, Stop date: 09/19/17 14:00:00 CDTNotes: (Same as: Apresoline) Push over 5 minutes Inactive 09/19/2017 [facility] Labetalol 10 mg, 2 mL, Route: IVP, Drug form: INJ, Q5Min, Dosing Weight 119.636, kg, PRN Elevated BP, Start date: 09/19/17 7:45:00 CDT, Duration: 5 doses or times, Stop date: 09/19/17 14:00:00 CDT Inactive 09/19/2017 [facility] Hydromorphone 0.5 mg, 0.25 mL, Route: IVP, Drug form: INJ, Q5Min, Dosing Weight 119.636, kg, PRN Pain Score 7-10, Start date: 09/19/17 7:45:00 CDT, Duration: 4 doses or times, Stop date: 09/19/17 14:00:00 CDTNotes: Same as Dilaudid Inactive 09/19/2017 [facility] Acetaminophen 1,000 mg, 2 tab, Route: PO, Drug form: TAB, ONCE, Dosing Weight 119.636, kg, PRN Pain Score 1-3, Start date: 09/19/17 7:45:00 CDTNotes: Max acetaminophen 4000 mg/day (4 gm/day). (Same as: Tylenol Extra Strength) Inactive 09/19/2017 [facility] propofol (ANES) 10 mg Route: IV, Drug form: INJ, Start date: 09/19/17 7:38:00 CDT, Stop date: 09/19/17 8:38:00 CDT Inactive 09/19/2017 [facility] Lactated Ringers Injection IV (ANES) 1000 mL Route: IV, Total Volume: 1,000, Start date: 09/19/17 6:59:00 CDT, Stop date: 09/19/17 7:59:00 CDT Inactive 09/19/2017 [facility] Lactated Ringers Injection IV (ANES) 1000 mL Route: IV, Total Volume: 1,000, Start date: 09/19/17 6:58:00 CDT, Stop date: 09/19/17 7:58:00 CDT Inactive 09/19/2017 [facility] polymyxin B sulfate + Sodium Chloride 0.9% IV 250 mL 125,000 unit, Route: IRRIG, ONCALL, Start date: 09/19/17 6:00:00 CDT, Duration: 1 doses or times, Stop date: 09/19/17 12:00:00 CDT, ABX Indication: Surgical ProphylaxisNotes: (Same as: Polymyxin B Sulfate) Inactive 09/19/2017 [facility] ropivacaine 100 mL, Route: InFILtration(local), Drug Form: INJ, ONCALL, Start date: 09/19/17 6:00:00 CDT, Stop date: 09/19/17 12:00:00 CDTNotes: NOT FOR IV use Each mL contains: Ropivacaine 2.46 mg, Epinephri ne 0.005 mg, Clonidine 0.0008 mg and Ketorolac 0.3 mg in Sodium Chloride Inactive 09/19/2017 [facility] celecoxib 200 mg, 1 cap, Route: PO, Drug form: CAP, ONCE, Dosing Weight 121.903, kg, Start date: 09/19/17 6:00:00 CDT, Stop date: 09/19/17 6:00:00 CDTNotes: NSAID. Please check indication. Not for seizure. (Sa me As: CeleBREX) Inactive 09/19/2017 [facility] Famotidine 20 MG Oral Tablet 20 mg, 1 tab, Route: PO, Drug form: TAB, ONCE, Dosing Weight 121.903, kg, Pre-operative., Start date: 09/19/17 6:00:00 CDT, Stop date: 09/19/17 6:00:00 CDTNotes: (Same as: Pepcid) Inactive 09/19/2017 [facility] Promethazine 12.5 mg, 1 tab, Route: PO, Drug form: TAB, ONCE, Dosing Weight 121.903, kg, PRN Allergic reaction, Preoperative. If patient is greater than 65 years old., Start date: 09/19/17 6:00:00 CDTNotes: (Same as: Phenergan) No Longer Active 09/19/2017 [facility] Acetaminophen 325 MG / Hydrocodone Bitartrate 10 MG Oral Tablet [Redgranite 10/325] 1 tab, Route: PO, Drug Form: TAB, Dosing Weight 121.903, kg, ONCE, Pre-operative, Start date: 09/19/17 6:00:00 CDT, Stop date: 09/19/17 6:00:00 CDTNotes: Do not exceed 4gm/day of acetaminophen. (Same as: Redgranite 325/10) Inactive 09/19/2017 [facility] vancomycin + Sodium Chloride 0.9% IV 250 mL 500 mg, Route: IRRIG, ONCALL, Start date: 09/19/17 6:00:00 CDT, Duration: 1 doses or times, Stop date: 09/19/17 12:00:00 CDT, ABX Indication: Surgical ProphylaxisNotes: TIME CRITICAL MEDICATION (Same As: Vancocin) For adult patients only: Round to nearest 250 mg per Medical Staff approval Inactive 09/19/2017 [facility] Lactated Ringers IV 1,000 mL 1,000 mL, Rate: 100 ml/hr, Infuse over: 10 hr, Route: IV, Dosing Weight 121.903 kg, Total Volume: 1,000, Start date: 09/19/17 4:00:00 CDT, Duration: 30 day, Stop date: 10/19/17 3:59:00 CDT, 2.54, m2 Inactive 09/19/2017 [facility] Cefazolin 2 gm, 100 mL, Route: IVPB, Drug form: INJ, ONCALL, Dosing Weight 121.903, kg, (Patients weighing Notes: Same as: Ancef Inactive 09/19/2017 [facility] Vancomycin 1,750 mg, Route: IVPB, ONCALL, Dosing Weight 121.903, kg, Start date: 09/19/17 4:00:00 CDT, Duration: 1 doses or times, Stop date: 09/20/17 0:00:00 CDT, ABX Indication: Surgical ProphylaxisNotes: TIME C RITICAL MEDICATION (Same As: Vancocin) Infusion rate 2001 mg: infuse over 2.5 hours For adult patients only: Round to nearest 250 mg per Medical Staff approval MEDICATION WASTE Product Size: 1000 mg Product Wasted: ___ mg Inactive 09/19/2017 [facility] ceFAZolin + Sodium Chloride 0.9% IV 50 mL 1 gm, Route: IVPB, Drug form: PDR/INJ, ONCALL, Start date: 09/19/17 4:00:00 CDT, Duration: 1 day, Stop date: 09/20/17 3:59:00 CDT, ABX Indication: Surgical ProphylaxisNotes: (Same As: Schuyler Manning) MEDICATION WASTE Product Size: 1000 mg Product Wasted: ___ mg Inactive 09/19/2017 [facility] Calcium Chloride 0.0014 MEQ/ML / Potassium Chloride 0.004 MEQ/ML / Sodium Chloride 0.103 MEQ/ML / Sodium Lactate 0.028 MEQ/ML Injectable Solution 1,000 mL, 1,000 ml/hr, Infuse Over: 1 hr, Route: IV, 1,000, Drug form: INJ, ONCE, Priority: STAT, Dosing Weight 121.903 kg, Start date: 09/18/17 12:37:00 CDT, Stop date: 09/18/17 12:37:00 CDT No Longer Active 09/18/2017 [facility] pantoprazole 40 mg oral enteric coated tablet 40 mg=1 tab, PO, Daily, # 30 tab, 0 Refill(s) Active 08/30/2017 [facility] Protonix 40 mg, Route: IVP, Drug form: INJ, Daily, Dosing Weight 155.682, kg, Start date: 02/24/17 16:00:00 CDT, Duration: 30 day, Stop date: 03/26/17 9:00:00 CDTNotes: For IV push reconstitute with 10 ml 0.9% sodium chloride and push over 2 minutes. (Same as: Protonix) Inactive 02/24/2017 [facility] Streptococcus pneumoniae serotype 1 capsular antigen diphtheria [id number] protein conjugate vaccine / Streptococcus pneumoniae serotype 14 capsular antigen diphtheria [id number] protein conjugate vaccine / Streptococcus pneumoniae serotype 18C capsular antigen d 0.5 mL, Route: IM, Drug Form: INJ, Daily, Start date: 02/24/17 9:00:00 CDT, Duration: 1 doses or times, Stop date: 02/24/17 9:00:00 CDTNotes: Shake well prior to use (Same as: Prevnar 13) Inactive 02/24/2017 [facility] 24 HR Metoprolol Tartrate 50 MG Extended Release Tablet [Toprol] 50 mg, 1 tab, Route: PO, Drug form: ERTAB, Daily, Start date: 02/24/17 9:00:00 CDT, Duration: 30 day, Stop date: 03/25/17 9:00:00 CDTNotes: (Same as: Toprol XL) May split tab, but do not crush. Inactive 02/24/2017 [facility] Tylenol with Codeine 120 mg-12 mg/5 mL oral liquid 15 ml, PO, Q6H, PRN Pain, X 7 day, # 420 mL, 0 Refill(s) Active 02/24/2017 [facility] tramadol hydrochloride 50 MG Oral Tablet 50 mg=1 tab, PO, Q6H, PRN Pain Score 6-10, X 5 day, # 20 tab, 0 Refill(s) Active 02/24/2017 [facility] Ondansetron 4 MG Disintegrating Tablet [Zofran] 4 mg=1 tab, PO, BID, PRN Nausea and Vomiting, Dissolve tab under tongue, # 14 tab, 0 Refill(s) Active 02/24/2017 [facility] Celebrex 200 mg, 1 cap, Route: PO, Drug form: CAP, Q12H, Dosing Weight 155.682, kg, Start date: 02/23/17 21:00:00 CDT, Duration: 30 day, Stop date: 03/25/17 9:00:00 CDTNotes: NSAID. Please check indication. Not for seizure. (Same As: CeleBREX) No Longer Active 02/24/2017 [facility] Enoxaparin 30 mg, 0.3 mL, Route: SUB-Q, Drug form: INJ, [id number], Dosing Weight 155.682, kg, Start date: 02/23/17 21:00:00 CDT, Duration: 30 day, Stop date: 03/25/17 9:00:00 CDTNotes: (Same as: Lovenox) No Longer Active 02/24/2017 [facility] Ondansetron 4 mg, 2 mL, Route: IVP, Drug form: INJ, Q6H, Dosing Weight 155.682, kg, Start date: 02/23/17 12:00:00 CDT, Duration: 30 day, Stop date: 03/25/17 6:00:00 CDTNotes: (Same as: Zofran) MEDICATION WASTE Product Size: 4 mg Product Wasted: ___ mg No Longer Active 02/23/2017 [facility] metoprolol (ANES) Route: IV, Drug form: INJ, ONCE, Stop date: 02/23/17 10:21:00 CDT Inactive 02/23/2017 [facility] Flumazenil 0.2 mg, 2 mL, Route: IVP, Drug form: INJ, PRN, Dosing Weight 155.682, kg, PRN Benzodiazepine Reversal, Initial dose, Start date: 02/23/17 10:20:00 CDT, Duration: 30 day, Stop date: 03/25/17 10:19:00 CDTNotes: (Same as: Romazicon) Inactive 02/23/2017 [facility] Hydromorphone 0.5 mg, 0.25 mL, Route: IVP, Drug form: INJ, Q5Min, Dosing Weight 155.682, kg, PRN Pain Score 7-10, Start date: 02/23/17 10:20:00 CDT, Duration: 4 doses or times, Stop date: Limited # of timesNotes: Same as: Dilaudid Inactive 02/23/2017 [facility] Naloxone 0.4 mg, 1 mL, Route: IVP, Drug form: INJ, Q2MIN, Dosing Weight 155.682, kg, PRN Narcotic Reversal, Start date: 02/23/17 10:20:00 CDT, Duration: 8 doses or times, Stop date: Limited # of timesNotes: Same as Narcan Inactive 02/23/2017 [facility] Oxycodone 5 mg, 1 tab, Route: PO, Drug form: TAB, Q4H, Dosing Weight 155.682, kg, PRN Pain Score 4-6, Start date: 02/23/17 10:20:00 CDT, Duration: 30 day, Stop date: 03/25/17 10:19:00 CDTNotes: (Same as: Roxic odone) Inactive 02/23/2017 [facility] Midazolam 1 mg, 1 mL, Route: IVP, Drug form: INJ, Q5Min, Dosing Weight 155.682, kg, PRN Anxiety, Start date: 02/23/17 10:20:00 CDT, Duration: 2 doses or times, Stop date: Limited # of timesNotes: (Same as: Versed ) MEDICATION WASTE Product Size: 2 mg Product Wasted: ___ mg Inactive 02/23/2017 [facility] Ondansetron 4 mg, 2 mL, Route: IVP, Drug form: INJ, ONCE, Dosing Weight 155.682, kg, PRN Nausea & Vomiting, Start date: 02/23/17 10:20:00 CDTNotes: (Same as: Zofran) MEDICATION WASTE Product Size: 4 mg Product Wasted: ___ mg Inactive 02/23/2017 [facility] ondansetron (ANES) Route: IV, Drug form: INJ, ONCE, Stop date: 02/23/17 10:05:00 CDT Inactive 02/23/2017 [facility] ketOROLAC (ANES) IV, ONCE Inactive 02/23/2017 [facility] hydromorphone (ANES) Route: IV, Drug form: INJ, ONCE, Stop date: 02/23/17 10:05:00 CDT Inactive 02/23/2017 [facility] neostigmine (ANES) Route: IV, Drug form: INJ, ONCE, Stop date: 02/23/17 10:05:00 CDT Inactive 02/23/2017 [facility] Calcium Chloride 0.0014 MEQ/ML / Potassium Chloride 0.004 MEQ/ML / Sodium Chloride 0.103 MEQ/ML / Sodium Lactate 0.028 MEQ/ML Injectable Solution 1,000 mL, Rate: 125 ml/hr, Infuse over: 8 hr, Route: IV, Dosing Weight 155.682 kg, Total Volume: 1,000, Start date: 02/23/17 10:00:00 CDT, Duration: 30 day, Stop date: 03/25/17 9:59:00 CDT No Longer Active 02/23/2017 [facility] midazolam (ANES) Route: IV, Drug form: SOLN, ONCE, Stop date: 02/23/17 9:05:00 CDT Inactive 02/23/2017 [facility] lidocaine (ANES) Route: IV, Drug form: INJ, ONCE, Stop date: 02/23/17 9:05:00 CDT Inactive 02/23/2017 [facility] fentaNYL (ANES) Route: IV, Drug form: INJ, ONCE, Stop date: 02/23/17 9:05:00 CDT Inactive 02/23/2017 [facility] propofol (ANES) Route: IV, Drug form: INJ, ONCE, Stop date: 02/23/17 9:05:00 CDT Inactive 02/23/2017 [facility] rocuronium (ANES) Route: IV, Drug form: INJ, ONCE, Stop date: 02/23/17 9:05:00 CDT Inactive 02/23/2017 [facility] Acetaminophen 1,000 mg, 31.23 mL, Route: PO, Drug form: LIQ, Q6Hnow, Dosing Weight 155.682, kg, Start date: 02/23/17 9:00:00 CDT, Duration: 30 day, Stop date: 03/25/17 3:00:00 CDTNotes: Max mkjhqpjumyliv=1209ke/day (4 gm/day). (Same as: Tylenol) No Longer Active 02/23/2017 [facility] celecoxib 200 mg, Route: PO, [id number], Dosing Weight 155.682, kg, Start date: 02/23/17 9:00:00 CDT, Duration: 30 day, Stop date: 03/24/17 21:00:00 CDT Inactive 02/23/2017 [facility] gabapentin 300 mg, 6 mL, Route: PO, Drug form: SOLN, Q8Hnow, Dosing Weight 155.682, kg, Start date: 02/23/17 9:00:00 CDT, Duration: 30 day, Stop date: 03/25/17 1:00:00 CDTNotes: (Same as: Neurontin) No Longer Active 02/23/2017 [facility] Celebrex 200 mg, 1 cap, Route: PO, Drug form: CAP, BID, Dosing Weight 155.682, kg, Start date: 02/23/17 9:00:00 CDT, Duration: 30 day, Stop date: 03/24/17 17:00:00 CDTNotes: NSAID. Please check indication. Not for seizure. (Same As: CeleBREX) Inactive 02/23/2017 [facility] gabapentin 600 MG Oral Tablet 600 mg, 1 tab, Route: PO, TID, Dosing Weight 155.682, kg, Start date: 02/23/17 9:00:00 CDT, Duration: 30 day, Stop date: 03/24/17 17:00:00 CDT Inactive 02/23/2017 [facility] glycopyrrolate (ANES) Route: IV, Drug form: INJ, ONCE, Stop date: 02/23/17 8:54:00 CDT Inactive 02/23/2017 [facility] dexamethasone (ANES) Route: IV, Drug form: INJ, ONCE, Stop date: 02/23/17 8:48:00 CDT Inactive 02/23/2017 [facility] phenylephrine (ANES) Route: IV, Drug form: INJ, ONCE, Stop date: 02/23/17 8:39:00 CDT Inactive 02/23/2017 [facility] cefOXitin (ANES) Route: IV, Drug form: INJ, ONCE, Stop date: 02/23/17 8:33:00 CDT Inactive 02/23/2017 [facility] acetaminophen (ANES) Route: IV, Drug form: INJ, ONCE, Stop date: 02/23/17 8:33:00 CDT Inactive 02/23/2017 [facility] magnesium sulfate (ANES) (ANES) Route: IV, Drug form: INJ, Start date: 02/23/17 8:30:00 CDT, Stop date: 02/23/17 9:30:00 CDT Inactive 02/23/2017 [facility] Tramadol 100 mg, 2 tab, Route: PO, Drug form: TAB, Q6H, Dosing Weight 155.682, kg, PRN Pain Score 6-10, Start date: 02/23/17 8:22:00 CDT, Duration: 30 day, Stop date: 03/25/17 8:21:00 CDTNotes: Not to exceed 400mg/day. (Same As: Ultram) No Longer Active 02/23/2017 [facility] sodium chloride 0.9% 100 ml INJ (ANES) + ketAMINE (ANES) (ANES) Route: IV, Drug form: INJ, Start date: 02/23/17 8:00:00 CDT, Stop date: 02/23/17 9:00:00 CDT Inactive 02/23/2017 [facility] sodium chloride 0.9% 100 ml INJ (ANES) + dexmedetomidine (ANES) (ANES) Route: IV, Drug form: INJ, Start date: 02/23/17 8:00:00 CDT, Stop date: 02/23/17 9:00:00 CDT Inactive 02/23/2017 [facility] LR 1000 mL INJ (ANES) Route: IV, Total Volume: 1,000, Start date: 02/23/17 7:40:00 CDT, Stop date: 02/23/17 8:40:00 CDT Inactive 02/23/2017 [facility] Aleve See Instructions, 220 mg PO, 0 Refill(s) No Longer Active 02/23/2017 [facility] CeleBREX 200 mg, 2 cap, Route: PO, Drug form: CAP, PRE OP, Start date: 02/23/17 7:00:00 CDT, Duration: 1 day, Stop date: 02/24/17 6:59:00 CDTNotes: NSAID. Please check indication. Not for seizure. (Same As: C eleBREX ) Inactive 02/23/2017 [facility] Neurontin 300 mg, 1 cap, Route: PO, Drug form: CAP, PRE OP, Start date: 02/23/17 7:00:00 CDT, Duration: 1 day, Stop date: 02/24/17 6:59:00 CDTNotes: (Same as: Neurontin) Inactive 02/23/2017 [facility] Ofirmev 1 gm, 100 mL, Route: IV, Drug form: INJ, PRE OP, Start date: 02/23/17 7:00:00 CDT, Duration: 1 day, Stop date: 02/24/17 6:59:00 CDTNotes: Infuse over 15 minutes Do not exceed 4gm/day of acetaminophen MEDICATION WASTE Product Size: 1000 mg Product Wasted: ___ mg Inactive 02/23/2017 [facility] remove patch 1 patch, Route: TOP, Drug form: ERFILM, ONCALL, Start date: 02/23/17 7:00:00 CDT, Duration: 30 day, Stop date: 03/25/17 6:59:00 CDTNotes: Remove old patch before application of new patch. No Longer Active 02/23/2017 [facility] scopolamine 1 patch, Route: TOP, Drug form: ERFILM, PRE OP, Start date: 02/23/17 7:00:00 CDT, Duration: 1 day, Stop date: 02/24/17 6:59:00 CDTNotes: Change patch every 72 hours (Same as: Transderm-Scop) No Longer Active 02/23/2017 [facility] heparin 5,000 unit, 1 mL, Route: SUB-Q, Drug form: INJ, PRE OP, Start date: 02/23/17 7:00:00 CDT, Duration: 1 day, Stop date: 02/24/17 6:59:00 CDTNotes: porcine heparin Inactive 02/23/2017 [facility] Mefoxin 2 gm, Route: IVPB, Drug form: INJ, PRE OP, Start date: 02/23/17 7:00:00 CDT, Duration: 1 day, Stop date: 02/24/17 6:59:00 CDT, ABX Indication: Surgical ProphylaxisNotes: (Same As: Mefoxin) MEDICATION WASTE Product Size: 2000 mg Product Wasted: ___ mg Inactive 02/23/2017 [facility] 72 HR Scopolamine 0.0139 MG/HR Transdermal Patch 1 patch, Route: TOP, Drug Form: ERFILM, Dosing Weight 155.682, kg, PRE OP, Start date: 02/23/17 7:00:00 CDT, Duration: 30 day, Stop date: 03/25/17 6:59:00 CDT Inactive 02/23/2017 [facility] Emend 40 mg, 1 cap, Route: PO, Drug form: CAP, ONCE, Dosing Weight 155.682, kg, Start date: 02/23/17 6:44:00 CDT, Stop date: 02/23/17 6:44:00 CDTNotes: Same as: Emend restricted to the Hematology/Oncology service for high and moderate emetogenic regimen according to ASCO Guidelines Passthrough Only for Chemotherapy-Induced nausea & vomiting Inactive 02/23/2017 [facility] Sodium Chloride 0.154 MEQ/ML Injectable Solution 500 mL, Rate: 25 ml/hr, Infuse over: 20 hr, Route: IV, Dosing Weight 165.909 kg, Total Volume: 500, Start date: 08/26/16 9:35:00 [employer]IPPING AND RECEIVING SUPERVISOR, Duration: 30 day, Stop date: 09/25/16 9:34:00 CDT Inactive 08/26/2016 [facility] multivitamin Daily, 0 Refill(s) Active 08/25/2016 [facility] Vitamin D3 0 Refill(s) Active 08/25/2016 [facility] metoprolol 50 mg oral tablet, extended release 50 mg=1 tab, PO, Daily, 0 Refill(s) Active 08/25/2016 [facility] Hydrochlorothiazide 50 MG Oral Tablet 50 mg=1 tab, PO, Daily, 0 Refill(s) Active 08/25/2016 [facility] Glucosamine & Chondroitin with MSM 0 Refill(s) Active 08/25/2016 [facility] Ginkgo Biloba 0 Refill(s) Active 08/25/2016 [facility] Fish Oil PO, 0 Refill(s) Active 08/25/2016 [facility] Aspirin 0 Refill(s) Active 08/25/2016 [facility] Allergies, Adverse Reactions, Alerts Substance Category Reaction Severity Reaction type Status Date Reported Comments Source Immunizations Immunization Date Given Site Status Last Updated Comments Source pneumococcal 13-valent vaccine 02/24/2017 Left deltoid completed [facility] Results Order Name Results Value Reference Range Date Interpretation Comments Source Knee 1-2 Views unilateral DX Knee 1-2 Views unilateral DX EXAM: XR LEFT KNEE 2 VIEWS DATE: 04/24/2018 10:29 AM CDT INDICATION: post-operative in PACU. COMPARISON: No prior knee left knee imaging available. TECHNIQUE: AP and lateral radiographs of the knee FINDINGS: A left total knee arthroplasty and patellar resurfacing have been placed, and project in satisfactory alignment on both views. No complication is identified. Expected postoperative subcutaneous emphysema and soft tissue swelling are present. IMPRESSION: Expected immediate postoperative appearance following left total knee arthroplasty. 04/24/2018 - - Read by: Tammy Oneal MD Dictated Date/time: 04/24/18 11:07 Electronically Signed by: Tammy Oneal MD 04/24/18 11:08 [facility] unilateral DX Knee 1-2 Views unilateral DX EXAM: XR RIGHT KNEE 2 VIEWS DATE: 01/23/2018 at 0905 hours INDICATION: Pain Post Trauma - post-operative in PACU. COMPARISON: None. TECHNIQUE: AP and lateral radiographs of the knee FINDINGS: Placement of right knee arthroplasty in good alignment. No fractures or dislocations are seen. There is some subcutaneous emphysema in the anterior portion of the knee which is to be expected postoperatively. IMPRESSION: Satisfactory placement of total knee arthroplasty. 01/23/2018 - - This report was dictated by a Road Patcher/Fellow. I have personally reviewed the images as well as the Resident's interpretation and agree with the findings. Read by: Katie Grossman MD Resident: Katie Grossman MD Dictated Date/time: 01/23/18 10:46 Electronically Signed by: Bernice Elkins MD 01/23/18 14:49 FINAL REPORT [facility] ELECTROLYTES Potassium Lvl 4.2 meq/L 3.5 - 5.1 09/20/2017 [facility] ELECTROLY[facility] Chloride Lvl 109 meq/L 95 - 109 09/20/2017 [facility] ELECTROLYTES CO2 27 meq/L 24 - 32 09/20/2017 [facility] ELECTROLYTES Calcium Lvl 7.5 mg/dL 8.5 - 10.5 09/20/2017 [facility] ELECTROLYTES eGFR 95 mL/min/1.73m2 09/20/2017 Result Comment: The eGFR is calculated using the [...] from the National Kidney Disease Education Program (NKDEP) which additionally recommends that when the eGFR is used in patients with extremes of body mass index for purposes of drug dosing, the eGFR should be multiplied by the estimated BMI. [facility] ELECTROLYTES Glucose Lvl 96 mg/dL 70 - 99 09/20/2017 [facility] ELECTROLYTES BUN 15 mg/dL 7 - 22 09/20/2017 [facility] ELECTROLYTES Creatinine Lvl 0.71 mg/dL 0.50 - 1.40 09/20/2017 [facility] ELECTROLYTES Sodium Lvl 144 meq/L 135 - 145 09/20/2017 [facility] ELECTROLYTES AGAP 12.2 meq/L 10.0 - 20.0 09/20/2017 [facility] HEMATOLOGY Monocytes # 1.0 K/CMM 0.0 - 0.8 09/20/2017 [facility] HEMATOLOGY Segs 62.6 % 45.0 - 75.0 09/20/2017 [facility] HEMATOLOGY Lymphocytes 24.1 % 20.0 - 40.0 09/20/2017 [facility] HEMATOLOGY Eosinophils 0.2 % 0.0 - 4.0 09/20/2017 [facility] HEMATOLOGY Lymphocytes # 1.9 K/CMM 1.0 - 5.5 09/20/2017 [facility] HEMATOLOGY Monocytes 12.9 % 2.0 - 12.0 09/20/2017 [facility] HEMATOLOGY Basophils 0.2 % 0.0 - 1.0 09/20/2017 [facility] HEMATOLOGY Segs-Bands # 4.8 K/CMM 1.5 - 8.1 09/20/2017 [facility] HEMATOLOGY MCV 93.2 fL 80.0 - 94.0 09/20/2017 [facility] HEMATOLOGY MCH 31.4 pg 27.0 - 31.0 09/20/2017 [facility] HEMATOLOGY RDW 13.3 % 11.5 - 14.5 09/20/2017 [facility] HEMATOLOGY Platelet 147 K/CMM 133 - 450 09/20/2017 [facility] HEMATOLOGY MPV 7.9 fL 7.4 - 10.4 09/20/2017 [facility] HEMATOLOGY MCHC 33.7 g/dL 32.0 - 36.0 09/20/2017 [facility] HEMATOLOGY RBC 4.05 M/CMM 4.70 - 6.10 09/20/2017 [facility] HEMATOLOGY Hct 37.7 % 42.0 - 54.0 09/20/2017 [facility] HEMATOLOGY WBC 7.7 K/CMM 3.7 - 10.4 09/20/2017 [facility] HEMATOLOGY Hgb 12.7 g/dL 14.0 - 18.0 09/20/2017 [facility] Pelvis AP DX Pelvis AP DX EXAM: XR PELVIS 1 VIEW DATE: 09/19/2017 9:49 AM CDT INDICATION: Pain Post Trauma - Post-operative in PACU COMPARISON: Intraoperative radiographs from the same day. TECHNIQUE: A single AP supine radiograph of the pelvis FINDINGS: Status post total right hip arthroplasty in satisfactory alignment. No acute fracture seen. Expected postoperative soft tissue changes. Mild degenerative changes of the left hip and bilateral SI joints. Mild diffuse osteopenia. IMPRESSION: 1. Status post total right hip arthroplasty in satisfactory alignment. 2. No acute fracture. 09/19/2017 - - Read by: Bernice Elkins MD Dictated Date/time: 09/19/17 11:20 Electronically Signed by: Bernice Elkins MD 09/19/17 11:21 FINAL REPORT [facility] Hip 1 view DX Hip 1 view DX EXAM: XR PELVIS 1 VIEW DATE: 09/19/2017 6:44 AM CDT INDICATION: - RIGHT TOTAL HIP ARTHROPLASTY COMPARISON: None available. TECHNIQUE: A single AP supine radiograph of the pelvis DISCUSSION: The examination is limited by portable technique and overlying artifact. There has been interval resection of the right femoral head and neck, and placement of a femoral measuring rasp and acetabular cup which project in satisfactory alignment. No acute fracture identified. Expected intraoperative soft tissue changes. IMPRESSION: Intraoperative radiograph demonstrating satisfactory alignment of a right acetabular cup and femoral rasp. 09/19/2017 - - Read by: Bernice Elkins MD Dictated Date/time: 09/19/17 11:19 Electronically Signed by: Bernice Elkins MD 09/19/17 11:20 FINAL REPORT [facility] CHEM PANEL eGFR 91 mL/min/1.73m2 08/31/2017 Result Comment: The eGFR is calculated using the [...] from the National Kidney Disease Education Program (NKDEP) which additionally recommends that when the eGFR is used in patients with extremes of body mass index for purposes of drug dosing, the eGFR should be multiplied by the estimated BMI. [facility] CHEM PANEL CO2 27 meq/L 24 - 32 08/31/2017 [facility] CHEM PANEL Chloride Lvl 107 meq/L 95 - 109 08/31/2017 [facility] CHEM PANEL Calcium Lvl 8.4 mg/dL 8.5 - 10.5 08/31/2017 [facility] CHEM PANEL Potassium Lvl 4.5 meq/L 3.5 - 5.1 08/31/2017 [facility] CHEM PANEL Creatinine Lvl 0.79 mg/dL 0.50 - 1.40 08/31/2017 [facility] CHEM PANEL BUN 15 mg/dL 7 - 22 08/31/2017 [facility] CHEM PANEL Glucose Lvl 80 mg/dL 70 - 99 08/31/2017 [facility] CHEM PANEL Sodium Lvl 141 meq/L 135 - 145 08/31/2017 [facility] CHEM PANEL AGAP 11.5 meq/L 10.0 - 20.0 08/31/2017 [facility] HEMATOLOGY Eosinophils 1.5 % 0.0 - 4.0 08/31/2017 [facility] HEMATOLOGY Monocytes 9.8 % 2.0 - 12.0 08/31/2017 [facility] HEMATOLOGY Lymphocytes 28.4 % 20.0 - 40.0 08/31/2017 [facility] HEMATOLOGY Basophils 0.6 % 0.0 - 1.0 08/31/2017 [facility] HEMATOLOGY Eosinophils # 0.1 K/CMM 0.0 - 0.5 08/31/2017 [facility] HEMATOLOGY Monocytes # 0.6 K/CMM 0.0 - 0.8 08/31/2017 [facility] HEMATOLOGY Lymphocytes # 1.8 K/CMM 1.0 - 5.5 08/31/2017 [facility] HEMATOLOGY Segs-Bands # 3.8 K/CMM 1.5 - 8.1 08/31/2017 [facility] HEMATOLOGY Segs 59.7 % 45.0 - 75.0 08/31/2017 [facility] HEMATOLOGY MPV 8.2 fL 7.4 - 10.4 08/31/2017 [facility] HEMATOLOGY Platelet 191 K/CMM 133 - 450 08/31/2017 [facility] HEMATOLOGY RDW 13.3 % 11.5 - 14.5 08/31/2017 [facility] HEMATOLOGY MCHC 33.9 g/dL 32.0 - 36.0 08/31/2017 [facility] HEMATOLOGY MCH 31.6 pg 27.0 - 31.0 08/31/2017 [facility] HEMATOLOGY Hct 45.0 % 42.0 - 54.0 08/31/2017 [facility] HEMATOLOGY MCV 93.1 fL 80.0 - 94.0 08/31/2017 [facility] HEMATOLOGY Hgb 15.3 g/dL 14.0 - 18.0 08/31/2017 [facility] HEMATOLOGY WBC 6.4 K/CMM 3.7 - 10.4 08/31/2017 [facility] HEMATOLOGY RBC 4.84 M/CMM 4.70 - 6.10 08/31/2017 [facility] Fluoro guidance needle placement DX Fluoro guidance needle placement DX EXAM: FLUOROSCOPY-GUIDED RIGHT HIP THERAPEUTIC INJECTION DATE: 06/06/2017 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 Appropriate time out procedures were performed. The skin was prepped and draped in the usual fashion under aseptic precautions. 1% lidocaine was utilized for local anesthesia. Under fluoroscopic guidance a 22 gauge long spinal needle was used to access the hip joint. 1 mL of Omnipaque 240 was injected under fluoroscopic guidance to confirm intra- articular needle placement. 40 mg of Kenalog and 3 mL of 0.2% ropivacaine were subsequently injected. No immediate complications. Preprocedure pain score: 5/10 Postprocedure pain score: 0/10 FLUORO TIME: 27 seconds DAP: 131 mGy-cm2 FINDINGS: Intra-articular injection the right hip is confirmed. Osteoarthrosis of the right hip noted. IMPRESSION: Technically successful fluoroscopy-guided right hip therapeutic injection. 06/06/2017 - - Read by: Rafael Willingham MD Dictated Date/time: 06/06/17 15:53 Electronically Signed by: Rafael Willingham MD 06/06/17 15:55 FINAL REPORT [facility] CHEM PANEL eGFR 91 mL/min/1.73m2 02/24/2017 Result Comment: The eGFR is calculated using the [...] from the National Kidney Disease Education Program (NKDEP) which additionally recommends that when the eGFR is used in patients with extremes of body mass index for purposes of drug dosing, the eGFR should be multiplied by the estimated BMI. [facility] CHEM PANEL Potassium Lvl 3.9 meq/L 3.5 - 5.1 02/24/2017 [facility] CHEM PANEL Sodium Lvl 139 meq/L 135 - 145 02/24/2017 [facility] CHEM PANEL BUN 15 mg/dL 7 - 22 02/24/2017 [facility] CHEM PANEL Creatinine Lvl 0.80 mg/dL 0.50 - 1.40 02/24/2017 [facility] CHEM PANEL Chloride Lvl 107 meq/L 95 - 109 02/24/2017 [facility] CHEM PANEL Glucose Lvl 123 mg/dL 70 - 99 02/24/2017 [facility] CHEM PANEL CO2 24 meq/L 24 - 32 02/24/2017 [facility] CHEM PANEL Calcium Lvl 8.4 mg/dL 8.5 - 10.5 02/24/2017 [facility] CHEM PANEL AGAP 11.9 meq/L 10.0 - 20.0 02/24/2017 [facility] HEMATOLOGY Segs 72.8 % 45.0 - 75.0 02/24/2017 [facility] HEMATOLOGY Lymphocytes 15.8 % 20.0 - 40.0 02/24/2017 [facility] HEMATOLOGY Monocytes 11.2 % 2.0 - 12.0 02/24/2017 [facility] HEMATOLOGY Basophils 0.2 % 0.0 - 1.0 02/24/2017 [facility] HEMATOLOGY Segs-Bands # 8.7 K/CMM 1.5 - 8.1 02/24/2017 [facility] HEMATOLOGY Lymphocytes # 1.9 K/CMM 1.0 - 5.5 02/24/2017 [facility] HEMATOLOGY Monocytes # 1.3 K/CMM 0.0 - 0.8 02/24/2017 [facility] HEMATOLOGY RDW 13.4 % 11.5 - 14.5 02/24/2017 [facility] HEMATOLOGY Platelet 186 K/CMM 133 - 450 02/24/2017 [facility] HEMATOLOGY MPV 7.5 fL 7.4 - 10.4 02/24/2017 [facility] HEMATOLOGY Hct 44.4 % 42.0 - 54.0 02/24/2017 [facility] HEMATOLOGY Hgb 15.1 g/dL 14.0 - 18.0 02/24/2017 [facility] HEMATOLOGY RBC 4.92 M/CMM 4.70 - 6.10 02/24/2017 [facility] HEMATOLOGY MCV 90.3 fL 80.0 - 94.0 02/24/2017 [facility] HEMATOLOGY MCHC 33.9 g/dL 32.0 - 36.0 02/24/2017 [facility] HEMATOLOGY MCH 30.6 pg 27.0 - 31.0 02/24/2017 [facility] HEMATOLOGY WBC 11.9 K/CMM 3.7 - 10.4 02/24/2017 [facility] BLOOD BANK RESULTS ABO/Rh A POS 02/23/2017 [facility] BLOOD BANK RESULTS Antibody Scrn Negative (02/23/17 5:52 AM) 02/23/2017 [facility] ELECTROLYTES AGAP 14.1 meq/L 10.0 - 20.0 02/10/2017 [facility] ELECTROLYTES B/C Ratio 23 6 - 25 02/10/2017 [facility] ELECTROLYTES Globulin 3.7 g/dL 2.7 - 4.2 02/10/2017 [facility] ELECTROLYTES A/G Ratio 1.0 0.7 - 1.6 02/10/2017 [facility] ELECTROLYTES eGFR 88 mL/min/1.73m2 02/10/2017 Result Comment: The eGFR is calculated using the [...] from the National Kidney Disease Education Program (NKDEP) which additionally recommends that when the eGFR is used in patients with extremes of body mass index for purposes of drug dosing, the eGFR should be multiplied by the estimated BMI. [facility] ELECTROLYTES Alk Phos 76 unit/L 39 - 136 02/10/2017 [facility] ELECTROLYTES Bili Total 0.5 mg/dL 0.2 - 1.3 02/10/2017 [facility] ELECTROLYTES CO2 29 meq/L 24 - 32 02/10/2017 [facility] ELECTROLYTES Calcium Lvl 8.8 mg/dL 8.5 - 10.5 02/10/2017 [facility] ELECTROLYTES Total Protein 7.4 g/dL 6.4 - 8.4 02/10/2017 [facility] ELECTROLYTES Albumin Lvl 3.7 g/dL 3.5 - 5.0 02/10/2017 [facility] ELECTROLYTES AST 16 unit/L 0 - 37 02/10/2017 [facility] ELECTROLYTES ALT 27 unit/L 0 - 65 02/10/2017 [facility] ELECTROLYTES Glucose Lvl 68 mg/dL 70 - 99 02/10/2017 [facility] ELECTROLYTES BUN 19 mg/dL 7 - 22 02/10/2017 [facility] ELECTROLYTES Creatinine Lvl 0.84 mg/dL 0.50 - 1.40 02/10/2017 [facility] ELECTROLYTES Sodium Lvl 142 meq/L 135 - 145 02/10/2017 [facility] ELECTROLYTES Potassium Lvl 4.1 meq/L 3.5 - 5.1 02/10/2017 [facility] ELECTROLYTES Chloride Lvl 103 meq/L 95 - 109 02/10/2017 [facility] HEMATOLOGY Tot Cell Ct 100 02/10/2017 [facility] HEMATOLOGY Plt Morph Normal (02/10/17 1:55 PM) 02/10/2017 [facility] HEMATOLOGY RBC Morph Normal (02/10/17 1:55 PM) 02/10/2017 [facility] HEMATOLOGY Segs-Bands # 4.4 K/CMM 1.5 - 8.1 02/10/2017 [facility] HEMATOLOGY Lymphocytes # 3.3 K/CMM 1.0 - 5.5 02/10/2017 [facility] HEMATOLOGY Monocytes # 0.8 K/CMM 0.0 - 0.8 02/10/2017 [facility] HEMATOLOGY Monocytes 9.0 % 2.0 - 12.0 02/10/2017 [facility] HEMATOLOGY Eosinophils 1.0 % 0.0 - 4.0 02/10/2017 [facility] HEMATOLOGY Atypical Lymphs 0.0 % <=0.0 % 02/10/2017 [facility] HEMATOLOGY Basophils 1.0 % 0.0 - 1.0 02/10/2017 [facility] HEMATOLOGY Bands 0.0 % 0.0 - 11.0 02/10/2017 [facility] HEMATOLOGY Lymphocytes 38.0 % 20.0 - 40.0 02/10/2017 [facility] HEMATOLOGY Eosinophils # 0.1 K/CMM 0.0 - 0.5 02/10/2017 [facility] HEMATOLOGY Basophils # 0.1 K/CMM 0.0 - 0.2 02/10/2017 [facility] HEMATOLOGY Segs 51.0 % 45.0 - 75.0 02/10/2017 [facility] HEMATOLOGY MPV 8.0 fL 7.4 - 10.4 02/10/2017 [facility] HEMATOLOGY RDW 13.3 % 11.5 - 14.5 02/10/2017 [facility] HEMATOLOGY MCV 89.0 fL 80.0 - 94.0 02/10/2017 [facility] HEMATOLOGY Platelet 196 K/CMM 133 - 450 02/10/2017 [facility] HEMATOLOGY Hct 49.6 % 42.0 - 54.0 02/10/2017 [facility] HEMATOLOGY RBC 5.57 M/CMM 4.70 - 6.10 02/10/2017 [facility] HEMATOLOGY Hgb 17.1 g/dL 14.0 - 18.0 02/10/2017 [facility] HEMATOLOGY MCHC 34.6 g/dL 32.0 - 36.0 02/10/2017 [facility] HEMATOLOGY MCH 30.8 pg 27.0 - 31.0 02/10/2017 [facility] HEMATOLOGY WBC 8.6 K/CMM 3.7 - 10.4 02/10/2017 [facility] Vital Signs Vital Sign Value Date Comments Source Temperature Oral (F) 98.3 F 09/20/2017 [facility] Respitory Rate 17 09/20/2017 [facility] Systolic (mm Hg) 118 09/20/2017 [facility] Diastolic (mm Hg) 61 09/20/2017 [facility] Heart Rate 66 09/20/2017 [facility] Respitory Rate 18 09/20/2017 [facility] Systolic (mm Hg) 102 09/20/2017 [facility] Diastolic (mm Hg) 50 09/20/2017 [facility] Heart Rate 53 09/20/2017 [facility] Temperature Oral (F) 97.8 F 09/20/2017 [facility] Temperature Oral (F) 98.0 F 09/20/2017 [facility] Systolic (mm Hg) 121 09/20/2017 [facility] Diastolic (mm Hg) 62 09/20/2017 [facility] Heart Rate 77 09/20/2017 [facility] Respitory Rate 18 09/20/2017 [facility] BMI Calculated 32.97 09/19/2017 [facility] Weight 119.636 09/19/2017 [facility] Height 190.5 cm 09/19/2017 [facility] Respitory Rate 17 06/06/2017 [facility] Systolic (mm Hg) 137 06/06/2017 [facility] Diastolic (mm Hg) 81 06/06/2017 [facility] Heart Rate 61 06/06/2017 [facility] BMI Calculated 36.54 06/06/2017 [facility] Weight 129.091 06/06/2017 [facility] Height 187.96 cm 06/06/2017 [facility] Heart Rate 62 06/06/2017 [facility] Systolic (mm Hg) 134 06/06/2017 [facility] Diastolic (mm Hg) 85 06/06/2017 [facility] Respitory Rate 18 06/06/2017 [facility] Systolic (mm Hg) 123 02/24/2017 [facility] Diastolic (mm Hg) 73 02/24/2017 [facility] Heart Rate 57 02/24/2017 [facility] Respitory Rate 18 02/24/2017 [facility] Temperature Oral (F) 97.6 F 02/24/2017 [facility] Heart Rate 61 02/24/2017 [facility] Systolic (mm Hg) 133 02/24/2017 [facility] Diastolic (mm Hg) 75 02/24/2017 [facility] Respitory Rate 18 02/24/2017 [facility] Heart Rate 65 02/24/2017 [facility] Respitory Rate 18 02/24/2017 [facility] Systolic (mm Hg) 134 02/24/2017 [facility] Diastolic (mm Hg) 72 02/24/2017 [facility] Temperature Oral (F) 97.6 F 02/24/2017 [facility] Temperature Oral (F) 97.6 F 02/24/2017 [facility] Height 187.96 cm 02/23/2017 [facility] Weight 155.682 02/23/2017 [facility] BMI Calculated 44.07 02/23/2017 [facility] BMI Calculated 44.07 02/23/2017 [facility] Weight 155.682 02/23/2017 [facility] Height 187.96 cm 02/10/2017 [facility] Systolic (mm Hg) 138 08/26/2016 [facility] Diastolic (mm Hg) 69 08/26/2016 [facility] Respitory Rate 18 08/26/2016 [facility] Systolic (mm Hg) 136 08/26/2016 [facility] Diastolic (mm Hg) 82 08/26/2016 [facility] Respitory Rate 18 08/26/2016 [facility] Systolic (mm Hg) 141 08/26/2016 [facility] Diastolic (mm Hg) 80 08/26/2016 [facility] Respitory Rate 18 08/26/2016 [facility] Weight 165.909 08/25/2016 [facility] BMI Calculated 45.72 08/25/2016 [facility] Height 190.5 cm 08/25/2016 [facility] Encounters Location Location Details Encounter Type Encounter Number Reason For Visit Attending Provider ADM Date DC Date Status Source [facility] Bedded Outpatient [id number] Miguel Angel Petit 08/26/2016 08/26/2016 [facility] Inpatient [id number] Malik Casillas 02/23/2017 02/24/2017 [facility] Out[facility] [id number] [facility] 06/06/2017 06/07/2017 [facility] [place] [facility] [id number] [facility] 06/22/2017 07/22/2017 [facility] [place] [facility] Patients [id number] [facility] 07/24/2017 08/23/2017 [facility] Inpatient [id number] [facility] 09/19/2017 09/20/2017 [facility] Procedures Procedure Code Date Perfomer Comments Source Injection procedure for hip arthrography; without anesthesia [id number] 06/06/2017 [facility] Laparoscopic sleeve gastrectomy<sup>1</sup> [id number] 02/23/2017 with EGD [facility] Laparoscopic sleeve gastrectomy<sup>1</sup> [id number] 02/23/2017 with EGD [facility] [place] Laparoscopic sleeve gastrectomy<sup>1</sup> [id number] 02/23/2017 with EGD [facility] Arthroscopic knee operation [id number] [facility] Back fusion [id number] [facility] Colonoscopy [id number] [facility] Foot joint operations [id number] [facility] Arthroscopic knee operation<sup>2</sup> [id number] BILATERAL [facility] [place] Back fusion [id number] [facility] [place] Colonoscopy [id number] [facility] [place] Foot joint operations<sup>3</sup> [id number] BILATERAL [place] TOES [facility] [place] Arthroscopic knee operation [id number] [place] Back fusion [id number] [facility] Foot joint operations [id number] [facility] Arthroscopic knee operation [id number] [facility] Back fusion [id number] [facility] Colonoscopy [id number] [facility] Foot joint operations [id number] [facility] Arthroscopic knee operation<sup>2</sup> [id number] BILATERAL [facility] Foot joint operations<sup>3</sup> [id number] BILATERAL [facility]
--- OUTSIDE RECORDS SUMMARY | 2018-08-12 15:14 | XMS REPORT | Summary of Care ---
Author Author [facility] Organization [facility] Address Unknown Phone Unavailable Encounter DESIRE Miradna(DORIS) [id number] Date(s): 08/26/16 - 08/26/16 [facility] [address] [place] [address]- Discharge Disposition: Home or Self Care Attending Physician: Miguel Angel Petit MD Referring Physician: Miguel Angel Petit MD Vital Signs 1 2 3 Most recent to oldest [Reference Range]: 190.5 cm (08/25/16 12:43 PM) Height 138/69 mmHg (08/26/16 12:08 PM) 136/82 mmHg (08/26/16 12:01 PM) 141/80 mmHg *HI* (08/26/16 11:55 AM) Blood Pressure [90-140/60-90 mmHg] 18 BRMIN (08/26/16 12:08 PM) 18 BRMIN (08/26/16 12:01 PM) 18 BRMIN (08/26/16 11:55 AM) Respiratory Rate [14-20 BRMIN] 165.909 kg (08/25/16 12:43 PM) Weight 45.72 m2 (08/25/16 12:43 PM) Body Mass Index Problem List Condition Effective Dates Status Health Status Informant Irregular heart Resolved beat(Confirmed) Apnea, Resolved sleep(Confirmed) Allergies, Adverse Reactions, Alerts Substance Reaction Severity Status NKDA Active Medications aspirin 0 Refill(s) Start Date: 08/25/16 Status: Ordered Fish Oil PO, 0 Refill(s) Start Date: 08/25/16 Status: Ordered Ginkgo Biloba 0 Refill(s) Start Date: 08/25/16 Status: Ordered Glucosamine & Chondroitin with MSM 0 Refill(s) Start Date: 08/25/16 Status: Ordered hydrochlorothiazide 50 mg oral tablet 50 mg=1 tab, PO, Daily, 0 Refill(s) Start Date: 08/25/16 Status: Ordered metoprolol 50 mg oral tablet, extended release 50 mg=1 tab, PO, Daily, 0 Refill(s) Start Date: 08/25/16 Status: Ordered multivitamin Daily, 0 Refill(s) Start Date: 08/25/16 Status: Ordered Sodium Chloride 0.9% IV 500 mL 500 mL, Rate: 25 ml/hr, Infuse over: 20 hr, Route: IV, Dosing Weight 165.909 kg, Total Volume: 500, Start date: 08/26/16 9:35:00 [employer], Duration: 30 day, Stop jared e: 09/25/16 9:34:00 CDT Start Date: 08/26/16 Stop Date: 08/26/16 Status: Discontinued Vitamin D3 0 Refill(s) Start Date: 08/25/16 Status: Ordered Results No data available for this section Immunizations No data available for this section Procedures Procedure Date Related Diagnosis Body Site Arthroscopic knee operation Back fusion Foot joint operations Social History Social History Type Response Alcohol Current, Frequency: 1-2 times per month. Smoking Status Former smoker; Exposure to Tobacco Smoke None; Other Tobacco Frequency quit 2011; Cigarette Smoking Last 365 Days Yes; Reg Smoking Cessation Counseling No Assessment and Plan No data available for this section
--- OUTSIDE RECORDS SUMMARY | 2018-08-12 15:14 | XMS REPORT | Summary of Care ---
Author Author [facility] Address Unknown Phone Unavailable Encounter DESIRE Miranda(DORIS) [id number] Date(s): 07/24/17 - 08/22/17 [facility] Encounter Diagnosis Unsteadiness on feet (Final) - Other abnormalities of gait and mobility (Final) - Unilateral primary osteoarthritis, right hip (Final) - 08/25/17 Pain in right hip (Final) - Stiffness of right hip, not elsewhere classified (Final) - Muscle weakness (generalized) (Final) - Unsteadiness on feet (Final) - Other abnormalities of gait and mobility (Final) - Discharge Disposition: Home or Self Care Attending Physician: Richard Shaw MD Vital Signs No data available for [...]
--- OUTSIDE RECORDS SUMMARY | 2018-08-12 15:15 | XMS REPORT | Summary of Care ---
Author Author [facility] Organization [facility] Address Unknown Phone Unavailable Encounter DESIRE Miranda(DORIS) [id number] Date(s): 09/19/17 - 09/20/17 [facility] [address] [place] [phone] Encounter Diagnosis Unilateral primary osteoarthritis, right hip (Final) - 10/04/17 Morbid (severe) obesity due to excess calories (Final) - Acute posthemorrhagic anemia (Final) - Body mass index (BMI) 32.0-32.9, adult (Final) - Obstructive sleep apnea (adult) (pediatric) (Final) - Essential (primary) hypertension (Final) - Osteophyte, right hip (Final) - Bariatric surgery status (Final) - Gastro-esophageal reflux disease without esophagitis (Final) - Cardiac arrhythmia, unspecified (Final) - Personal history of nicotine dependence (Final) - Discharge Disposition: Home or Self Care Attending Physician: Richard Shaw MD Admitting Physician: Richard Shaw MD Referring Physician: Richard Shaw MD Vital Signs 1 2 3 Most recent to oldest [Reference Range]: 190.5 cm (09/19/17 5:24 AM) Height 98.3 DegF (09/20/17 7:20 AM) 97.8 DegF (09/20/17 3:35 AM) 98.0 DegF (09/19/17 11:15 PM) Temperature Oral [96.4-99.1 DegF] 118/61 mmHg (09/20/17 7:20 AM) 102/50 mmHg (09/20/17 3:35 AM) 121/62 mmHg (09/19/17 11:15 PM) Blood Pressure [90-140/60-90 mmHg] 17 BRMIN (09/20/17 7:20 AM) 18 BRMIN (09/20/17 3:35 AM) 18 BRMIN (09/19/17 11:15 PM) Respiratory Rate [14-20 BRMIN] 66 bpm (09/20/17 7:20 AM) 53 bpm *LOW* (09/20/17 3:35 AM) 77 bpm (09/19/17 11:15 PM) Peripheral Pulse Rate [60-100 bpm] 119.636 kg (09/19/17 5:24 AM) Weight 32.97 m2 (09/19/17 5:24 AM) Body Mass Index Problem List Condition Effective Dates Status Health Status Informant HTN Active (hypertension)(Confi rmed) Irregular heart Active beat(Confirmed) Nephrolithiasis(Conf Active irmed) Colon Resolved cancer(Confirmed) Obesity(Confirmed) Active RELL (obstructive Active sleep apnea)(Confirmed) Numbness and Active tingling of foot(Confirmed) Allergies, Adverse Reactions, Alerts Substance Reaction Severity Status NKDA Active Medications acetaminophen 650 mg, 2 tab, Route: PO, Drug form: TAB, Q6H, Dosing Weight 119.636, kg, PRN Fo r Temp > 100.4 F, Start date: 09/19/17 9:49:00 CDT, Duration: 30 day, Stop date: 10/19/17 9:48:00 CDT Notes: Do not exceed 4 gm/day. (Same as: Tylenol) Start Date: 09/19/17 Stop Date: 09/20/17 Status: Discontinued ANES acetaminophen 1,000 mg, 2 tab, Route: PO, Drug form: TAB, ONCE, Dosing Weight 119.636, kg, PRN Pain Score 1-3, Start date: 09/19/17 7:45:00 CDT Notes: Max acetaminophen 4000 mg/day (4 gm/day). (Same as: Tylenol Extra Streng th) Start Date: 09/19/17 Stop Date: 09/19/17 Status: Discontinued ANES flumazenil 0.2 mg, 2 mL, Route: IVP, Drug form: INJ, PRN, Dosing Weight 119.636, kg, PRN Be nzodiazepine Reversal, Initial dose, Start date: 09/19/17 7:45:00 CDT, Stop date : 09/19/17 14:00:00 CDT Notes: (Same as: Romazicon) Start Date: 09/19/17 Stop Date: 09/19/17 Status: Discontinued ANES hydrALAZINE 10 mg, 0.5 mL, Route: IVP, Drug form: INJ, Q20Min, Dosing Weight 119.636, kg, OH N Elevated BP, Start date: 09/19/17 7:45:00 CDT, Duration: 2 doses or times, Sto p date: 09/19/17 14:00:00 CDT Notes: (Same as: Apresoline)Push over 5 minutes Start Date: 09/19/17 Stop Date: 09/19/17 Status: Discontinued ANES HYDROmorphone 0.5 mg, 0.25 mL, Route: IVP, Drug form: INJ, Q5Min, Dosing Weight 119.636, kg, P RN Pain Score 7-10, Start date: 09/19/17 7:45:00 CDT, Duration: 4 doses or times , Stop date: 09/19/17 14:00:00 CDT Notes: Same as Dilaudid Start Date: 09/19/17 Stop Date: 09/19/17 Status: Discontinued ANES labetalol 10 mg, 2 mL, Route: IVP, Drug form: INJ, Q5Min, Dosing Weight 119.636, kg, PRN E levated BP, Start date: 09/19/17 7:45:00 CDT, Duration: 5 doses or times, Stop d ate: 09/19/17 14:00:00 CDT Start Date: 09/19/17 Stop Date: 09/19/17 Status: Discontinued ANES meperidine 12.5 mg, 0.5 mL, Route: IVP, Drug form: INJ, Q30Min, Dosing Weight 119.636, kg, PRN Other -See Comment, For shivering, Start date: 09/19/17 7:45:00 CDT, Duratio n: 2 doses or times, Stop date: 09/19/17 14:00:00 CDT Notes: (Same as: Demerol) "Use Precaution in Elderly, Seizure disorders, and Re nal impairment" Start Date: 09/19/17 Stop Date: 09/19/17 Status: Discontinued ANES morphine Sulfate 2 mg, 0.2 mL, Route: IVP, Drug form: INJ, Q5Min, Dosing Weight 119.636, kg, PRN Pain Score 4-6, Start date: 09/19/17 7:45:00 CDT, Duration: 5 doses or times, St op date: 09/19/17 14:00:00 CDT Notes: (Same as:MORPhine Sulfate) Start Date: 09/19/17 Stop Date: 09/19/17 Status: Discontinued ANES naloxone 0.4 mg, 1 mL, Route: IVP, Drug form: INJ, Q2MIN, Dosing Weight 119.636, kg, PRN Narcotic Reversal, Start date: 09/19/17 7:45:00 CDT, Duration: 8 doses or times, Stop date: Limited # of times Notes: Same as Narcan Start Date: 09/19/17 Stop Date: 09/19/17 Status: Discontinued ANES ondansetron 4 mg, 2 mL, Route: IVP, Drug form: INJ, ONCE, Dosing Weight 119.636, kg, PRN Oswald sea & Vomiting, Start date: 09/19/17 7:45:00 CDT Notes: (Same as: Zofran) MEDICATION WASTE Product Size: 4 mgProduct Was cally: ___ mg Start Date: 09/19/17 Stop Date: 09/19/17 Status: Discontinued ANES promethazine 6.25 mg, 0.25 mL, Route: IVPB, Drug form: INJ, ONCE, Dosing Weight 119.636, kg, PRN Nausea & Vomiting, Start date: 09/19/17 7:45:00 CDT Notes: Do not give IV push. (Same as: Phenergan) Start Date: 09/19/17 Stop Date: 09/19/17 Status: Discontinued aspirin 325 mg tablet, enteric coated 325 mg, 1 tab, Route: PO, Drug form: ECTAB, BID, Dosing Weight 119.636, kg, Star t date: 09/20/17 8:00:00 CDT, Duration: 30 day, Stop date: 10/19/17 17:00:00 CDT Notes: (Do Not Crush) Do not crush or chew. Start Date: 09/20/17 Stop Date: 09/20/17 Status: Discontinued ceFAZolin 2 gm, 100 mL, Route: IVPB, Drug form: INJ, ONCALL, Dosing Weight 121.903, kg, (P atients weighing < 120 kg), Start date: 09/19/17 4:00:00 CDT, Duration: 1 doses or times, Stop date: 09/20/17 0:00:00 CDT, ABX Indication: Surgical Prophylaxis Notes: Same as: Ancef Start Date: 09/19/17 Stop Date: 09/19/17 Status: Discontinued ceFAZolin (ANES) Route: IV, Drug form: INJ, ONCE, Stop date: 09/19/17 7:54:00 CDT Start Date: 09/19/17 Stop Date: 09/19/17 Status: Completed ceFAZolin (SCIP) + Sodium Chloride 0.9% IV 50 mL 1 gm, Route: IVPB, Drug form: PDR/INJ, Q6H-02, Dosing Weight 119.636, kg, Start date: 09/19/17 14:00:00 CDT, Duration: 3 doses or times, Stop date: 09/20/17 2:0 0:00 CDT, ABX Indication: Surgical Prophylaxis Notes: (Same As: Ancef, Phillfzol) MEDICATION WASTE Product Size: 1000 mgP roduct Wasted: ___ mg Start Date: 09/19/17 Stop Date: 09/20/17 Status: Completed ceFAZolin + Sodium Chloride 0.9% IV 50 mL 1 gm, Route: IVPB, Drug form: PDR/INJ, ONCALL, Start date: 09/19/17 4:00:00 CDT, Duration: 1 day, Stop date: 09/20/17 3:59:00 CDT, ABX Indication: Surgical Prop hylaxis Notes: (Same As: Ancef, Kefzol) MEDICATION WASTE Product Size: 1000 mgP roduct Wasted: ___ mg Start Date: 09/19/17 Stop Date: 09/19/17 Status: Discontinued CeleBREX 200 mg, 1 cap, Route: PO, Drug form: CAP, BID, Dosing Weight 119.636, kg, Begin evening of surgery. Do not give if sulfa allergy or renal disease., Start date: 09/19/17 21:00:00 CDT, Duration: 48 hr, Stop date: 09/21/17 17:00:00 CDT Notes: NSAID. Please check indication. Not for seizure. (Same As: CeleBREX) Start Date: 09/19/17 Stop Date: 09/20/17 Status: Discontinued celecoxib 200 mg, 1 cap, Route: PO, Drug form: CAP, ONCE, Dosing Weight 121.903, kg, Start date: 09/19/17 6:00:00 CDT, Stop date: 09/19/17 6:00:00 CDT Notes: NSAID. Please check indication. Not for seizure. (Same As: CeleBREX) Start Date: 09/19/17 Stop Date: 09/19/17 Status: Completed dexamethasone 10 mg, 1 mL, Route: IVP, Drug form: INJ, ONCE, Dosing Weight 119.636, kg, POD #1 , Start date: 09/20/17 10:01:00 CDT, Stop date: 09/20/17 10:01:00 CDT Notes: MEDICATION WASTE Product Size: 10 mgProduct Wasted: ___ mg Start Date: 09/20/17 Stop Date: 09/20/17 Status: Completed dexamethasone 10 mg, 1 mL, Route: IVP, Drug form: INJ, ONCE, Dosing Weight 119.636, kg, POD #1 , Start date: 09/19/17 9:49:00 CDT, Stop date: 09/19/17 9:49:00 CDT Notes: MEDICATION WASTE Product Size: 10 mgProduct Wasted: ___ mg Start Date: 09/19/17 Stop Date: 09/19/17 Status: Deleted dexamethasone (ANES) Route: IV, Drug form: INJ, ONCE, Stop date: 09/19/17 8:19:00 CDT Start Date: 09/19/17 Stop Date: 09/19/17 Status: Completed docusate-senna 50 mg-8.6 mg oral tablet 1 tab, Route: PO, Drug Form: TAB, Dosing Weight 119.636, kg, Daily, Start date: 09/20/17 9:00:00 CDT, Duration: 30 day, Stop date: 10/19/17 9:00:00 CDT Notes: (Same as Senokot-S) Equiv. to Rosanne-Colace. Start Date: 09/20/17 Stop Date: 09/20/17 Status: Discontinued docusate-senna 50 mg-8.6 mg oral tablet 1 tab, PO, Daily, # 60 tab, 0 Refill(s) Start Date: 09/20/17 Stop Date: 10/24/17 Status: Completed ePHEDrine (ANES) Route: IV, Drug form: INJ, ONCE, Stop date: 09/19/17 7:54:00 CDT Start Date: 09/19/17 Stop Date: 09/19/17 Status: Completed famotidine 20 mg oral tablet 20 mg, 1 tab, Route: PO, Drug form: TAB, ONCE, Dosing Weight 121.903, kg, Pre-op erative., Start date: 09/19/17 6:00:00 CDT, Stop date: 09/19/17 6:00:00 CDT Notes: (Same as: Pepcid) Start Date: 09/19/17 Stop Date: 09/19/17 Status: Completed fentaNYL (ANES) Route: IV, Drug form: INJ, ONCE, Stop date: 09/19/17 8:19:00 CDT Start Date: 09/19/17 Stop Date: 09/19/17 Status: Completed gabapentin 300 mg oral capsule 300 mg=1 cap, PO, TID, # 90 cap, 0 Refill(s) Start Date: 09/20/17 Status: Ordered Lactated Ringers (Bolus) IV 1,000 mL, 1,000 ml/hr, Infuse Over: 1 hr, Route: IV, 1,000, Drug form: INJ, ONCE , Priority: STAT, Dosing Weight 121.903 kg, Start date: 09/18/17 12:37:00 CDT, S top date: 09/18/17 12:37:00 CDT Start Date: 09/18/17 Stop Date: 09/19/17 Status: Completed Lactated Ringers Injection IV (ANES) 1000 mL Route: IV, Total Volume: 1,000, Start date: 09/19/17 6:58:00 CDT, Stop date: 7:58:00 CDT Start Date: 09/19/17 Stop Date: 09/19/17 Status: Completed Lactated Ringers Injection IV (ANES) 1000 mL Route: IV, Total Volume: 1,000, Start date: 09/19/17 6:59:00 CDT, Stop date: 7:59:00 CDT Start Date: 09/19/17 Stop Date: 09/19/17 Status: Completed Lactated Ringers IV 1,000 mL 1,000 mL, Rate: 75 ml/hr, Infuse over: 13.3 hr, Route: IV, Dosing Weight 119.636 kg, Total Volume: 1,000, Start date: 09/19/17 9:49:00 CDT, Duration: 30 day, St op date: 10/19/17 9:48:00 CDT, 2.53, m2 Start Date: 09/19/17 Stop Date: 09/20/17 Status: Discontinued Lactated Ringers IV 1,000 mL 1,000 mL, Rate: 100 ml/hr, Infuse over: 10 hr, Route: IV, Dosing Weight 121.903 kg, Total Volume: 1,000, Start date: 09/19/17 4:00:00 CDT, Duration: 30 day, Sto p date: 10/19/17 3:59:00 CDT, 2.54, m2 Start Date: 09/19/17 Stop Date: 09/19/17 Status: Discontinued lidocaine (ANES) Route: IV, Drug form: INJ, ONCE, Stop date: 09/19/17 8:19:00 CDT Start Date: 09/19/17 Stop Date: 09/19/17 Status: Completed Lyrica 50 mg, 1 cap, Route: PO, Drug form: CAP, Q8H, Dosing Weight 119.636, kg, Start d ate: 09/19/17 16:00:00 CDT, Duration: 30 day, Stop date: 10/19/17 8:00:00 CDT Notes: Same as Lyrica Start Date: 09/19/17 Stop Date: 09/20/17 Status: Discontinued melatonin 3 mg, 1 tab, Route: PO, Drug form: TAB, Bedtime, Dosing Weight 119.636, kg, PRN Insomnia, Start date: 09/19/17 9:49:00 CDT, Duration: 30 day, Stop date: 8 9:48:00 CDT Notes: (Same as: Melatonin) Start Date: 09/19/17 Stop Date: 09/20/17 Status: Discontinued methocarbamol 500 mg, 1 tab, Route: PO, Drug form: TAB, TID, Dosing Weight 119.636, kg, PRN Mu scle Spasms, Start date: 09/19/17 9:49:00 CDT, Duration: 30 day, Stop date: 09/25 12/11 9:48:00 CDT Notes: (Same as:Robaxin) Start Date: 09/19/17 Stop Date: 09/20/17 Status: Discontinued metoprolol extended release 12.5 mg, 0.5 tab, Route: PO, Drug form: ERTAB, Daily, Start date: 09/20/17 9:00: 00 CDT, Duration: 30 day, Stop date: 10/19/17 9:00:00 CDT Notes: (Same as: Toprol XL) Do Not Crush Start Date: 09/20/17 Stop Date: 09/20/17 Status: Discontinued midazolam (ANES) Route: IV, Drug form: SOLN, ONCE, Stop date: 09/19/17 8:19:00 CDT Start Date: 09/19/17 Stop Date: 09/19/17 Status: Completed Milk of Magnesia 30 ml, Route: PO, Drug Form: SUSP, Dosing Weight 119.636, kg, Q6H, PRN as needed for constipation, Start date: 09/19/17 9:49:00 CDT, Duration: 30 day, Stop date: 10/19/17 9:48:00 CDT Notes: (Same as: Milk of Magnesia, MOM) Start Date: 09/19/17 Stop Date: 09/20/17 Status: Discontinued morphine Sulfate 1 mg, 0.1 mL, Route: IVP, Drug form: INJ, Q3H, Dosing Weight 119.636, kg, PRN Pa in Score 7-10, If not responding to oral therapy or unable to tolerate PO., Star t date: 09/19/17 9:49:00 CDT, Duration: 30 day, Stop date: 10/19/17 9:48:00 CDT Notes: (Same as:MORPhine Sulfate) Start Date: 09/19/17 Stop Date: 09/20/17 Status: Discontinued [place] 10/325 oral tablet 1 tab, Route: PO, Drug Form: TAB, Dosing Weight 119.636, kg, Q4H, PRN Pain Score 4-6, Start date: 09/19/17 9:49:00 CDT, Duration: 30 day, Stop date: 10/19/17 9: 48:00 CDT Notes: Do not exceed 4gm/day of acetaminophen. (Same as: [place] 325/10) Start Date: 09/19/17 Stop Date: 09/20/17 Status: Discontinued [place] 10/325 oral tablet 1 tab, Route: PO, Drug Form: TAB, Dosing Weight 121.903, kg, ONCE, Pre-operative , Start date: 09/19/17 6:00:00 CDT, Stop date: 09/19/17 6:00:00 CDT Notes: Do not exceed 4gm/day of acetaminophen. (Same as: [place] 325/10) Start Date: 09/19/17 Stop Date: 09/19/17 Status: Completed ondansetron 4 mg, 2 mL, Route: IV, Drug form: INJ, Q4H, Dosing Weight 119.636, kg, PRN Nause a, Start date: 09/19/17 9:49:00 CDT, Duration: 30 day, Stop date: 10/19/17 9:48: 00 CDT Notes: (Same as: Carito) MEDICATION WASTE Product Size: 4 mgProduct Was cally: ___ mg Start Date: 09/19/17 Stop Date: 09/20/17 Status: Discontinued ondansetron (ANES) Route: IV, Drug form: INJ, ONCE, Stop date: 09/19/17 9:09:00 CDT Start Date: 09/19/17 Stop Date: 09/19/17 Status: Completed oxyCODONE 5 mg oral tablet 10 mg, 2 tab, Route: PO, Drug form: TAB, Q4H, Dosing Weight 119.636, kg, PRN Ollie n Score 7-10, Start date: 09/19/17 9:49:00 CDT, Duration: 30 day, Stop date: 9:48:00 CDT Notes: (Same as: Roxicodone) Start Date: 09/19/17 Stop Date: 09/20/17 Status: Discontinued pantoprazole 40 mg, 1 tab, Route: PO, Drug form: ECTAB, Before Breakfast, Dosing Weight 119.6 36, kg, Start date: 09/20/17 7:30:00 CDT, Duration: 30 day, Stop date: 10/19/17 7:30:00 CDT Notes: Tablet should not be chewed or crushed.(Same as: Protonix) Start Date: 09/20/17 Stop Date: 09/20/17 Status: Discontinued pantoprazole 40 mg, 1 tab, Route: PO, Drug form: ECTAB, Before Breakfast, Dosing Weight 119.6 36, kg, Start date: 09/20/17 7:30:00 CDT, Duration: 30 day, Stop date: 10/19/17 7:30:00 CDT Notes: Tablet should not be chewed or crushed.(Same as: Protonix) Start Date: 09/20/17 Stop Date: 09/19/17 Status: Discontinued pantoprazole 40 mg oral enteric coated tablet 40 mg=1 tab, PO, Daily, # 30 tab, 0 Refill(s) Start Date: 08/30/17 Status: Ordered phenylephrine (ANES) Route: IV, Drug form: INJ, ONCE, Stop date: 09/19/17 8:29:00 CDT Start Date: 09/19/17 Stop Date: 09/19/17 Status: Completed polyethylene glycol 3350 17 gm, 1 pkt, Route: PO, Drug form: PWDR, Daily, Dosing Weight 119.636, kg, Hold for loose stools., Start date: 09/20/17 9:00:00 CDT, Duration: 30 day, Stop jared e: 10/19/17 9:00:00 CDT Notes: Dissolve in 8 oz of water or juice.(Same as: Miralax) Start Date: 09/20/17 Stop Date: 09/20/17 Status: Discontinued polymyxin B sulfate + Sodium Chloride 0.9% IV 250 mL 125,000 unit, Route: IRRIG, ONCALL, Start date: 09/19/17 6:00:00 CDT, Duration: 1 doses or times, Stop date: 09/19/17 12:00:00 CDT, ABX Indication: Surgical Pro phylaxis Notes: (Same as: Polymyxin B Sulfate) Start Date: 09/19/17 Stop Date: 09/19/17 Status: Discontinued promethazine 12.5 mg, 1 tab, Route: PO, Drug form: TAB, ONCE, Dosing Weight 121.903, kg, PRN Allergic reaction, Preoperative. If patient is greater than 65 years old., Start date: 09/19/17 6:00:00 CDT Notes: (Same as: Phenergan) Start Date: 09/19/17 Stop Date: 09/20/17 Status: Discontinued propofol (ANES) Route: IV, Drug form: INJ, ONCE, Stop date: 09/19/17 8:19:00 CDT Start Date: 09/19/17 Stop Date: 09/19/17 Status: Completed propofol (ANES) 10 mg Route: IV, Drug form: INJ, Start date: 09/19/17 7:38:00 CDT, Stop date: 09/19/17 8:38:00 CDT Start Date: 09/19/17 Stop Date: 09/19/17 Status: Completed rocuronium (ANES) Route: IV, Drug form: INJ, ONCE, Stop date: 09/19/17 8:19:00 CDT Start Date: 09/19/17 Stop Date: 09/19/17 Status: Completed ropivacaine 100 mL, Route: InFILtration(local), Drug Form: INJ, ONCALL, Start date: 09/19/17 6:00:00 CDT, Stop date: 09/19/17 12:00:00 CDT Notes: NOT FOR IV useEach mL contains: Ropivacaine 2.46 mg, Epinephrine 0. 005 mg, Clonidine 0.0008 mg and Ketorolac 0.3 mg in Sodium Chloride Start Date: 09/19/17 Stop Date: 09/19/17 Status: Discontinued succinylcholine (ANES) Route: IV, Drug form: INJ, ONCE, Stop date: 09/19/17 8:19:00 CDT Start Date: 09/19/17 Stop Date: 09/19/17 Status: Completed Toprol-XL 50 mg oral tablet, extended release 50 mg, 1 tab, Route: PO, Drug form: ERTAB, Daily, Start date: 09/20/17 9:00:00 C DT, Duration: 30 day, Stop date: 10/19/17 9:00:00 CDT Notes: (Same as: Toprol XL) May split tab, but do not crush. Start Date: 09/20/17 Stop Date: 09/20/17 Status: Discontinued tramadol 50 mg, 1 tab, Route: PO, Drug form: TAB, Q4H, Dosing Weight 119.636, kg, PRN Ollie n Score 1-3, Start date: 09/19/17 9:49:00 CDT, Duration: 30 day, Stop date: 09/25 12/11 9:48:00 CDT Notes: Not to exceed 400mg/day. (Same As: Ultram) Start Date: 09/19/17 Stop Date: 09/20/17 Status: Discontinued tramadol 50 mg oral tablet 50 mg=1 tab, PO, Q4H, PRN Pain Score 1-3, # 60 tab, 0 Refill(s) Start Date: 09/20/17 Stop Date: 10/18/17 Status: Completed tranexamic acid (ANES) Route: IV, Drug form: INJ, ONCE, Stop date: 09/19/17 8:19:00 CDT Start Date: 09/19/17 Stop Date: 09/19/17 Status: Completed vancomycin (ANES) Route: IV, Drug form: INJ, ONCE, Stop date: 09/19/17 8:14:00 CDT Start Date: 09/19/17 Stop Date: 09/19/17 Status: Deleted vancomycin (SCIP) + Sodium Chloride 0.9% IV 250 mL 1,000 mg, Route: IVPB, Q12H, Dosing Weight 119.636, kg, Time Critical Medication , Start date: 09/19/17 18:30:00 CDT, Duration: 2 doses or times, Stop date: 08/25 02/10 6:30:00 CDT, Pharmacy to adjust dose for renal function, ABX Indication: Tillman rgical Prop... Notes: TIME CRITICAL MEDICATION(Same As: Vancocin)Infusion rate< 1000 mg: infuse over 1 [id number] - 1500 mg: infuse over 1.5 [id number] - 2000 mg: infuse over 2 hours> 2001 mg: infuse over 2.5 hoursFor adult patients only: Round to nearest 250 mg per Medical Staff approval MEDICATION WASTE Product Size: 1000 mgProduct Wasted: ___ mg Start Date: 09/19/17 Stop Date: 09/20/17 Status: Completed vancomycin + Sodium Chloride 0.9% IV 250 mL 500 mg, Route: IRRIG, ONCALL, Start date: 09/19/17 6:00:00 CDT, Duration: 1 dose s or times, Stop date: 09/19/17 12:00:00 CDT, ABX Indication: Surgical Prophylax is Notes: TIME CRITICAL MEDICATION(Same As: Vancocin)For adult patients only: Round to nearest 250 mg per Medical Staff approval Start Date: 09/19/17 Stop Date: 09/19/17 Status: Discontinued vancomycin + Sodium Chloride 0.9% IV 500 mL 1,750 mg, Route: IVPB, ONCALL, Dosing Weight 121.903, kg, Start date: 09/19/17 4 :00:00 CDT, Duration: 1 doses or times, Stop date: 09/20/17 0:00:00 CDT, ABX Ind ication: Surgical Prophylaxis Notes: TIME CRITICAL MEDICATION(Same As: Vancocin)Infusion rate< 1000 mg: infuse over 1 [id number] - 1500 mg: infuse over 1.5 [id number] - 2000 mg: infuse over 2 hours> 2001 mg: infuse over 2.5 hoursFor adult patients only: Round to nearest 250 mg per Medical Staff approval MEDICATION WASTE Product Size: 1000 mgProduct Wasted: ___ mg Start Date: 09/19/17 Stop Date: 09/19/17 Status: Completed Xarelto 10 mg oral tablet 10 mg=1 tab, PO, Daily, # 21 tab, 0 Refill(s) Start Date: 09/21/17 Status: Ordered Results ELECTROLYTES Most recent to 1 2 oldest [Reference Range]: Sodium Lvl [135-145 144 mEq/L 141 mEq/L mEq/L] (09/20/17 3:57 AM) (08/31/17 9:57 AM) Potassium Lvl 4.2 mEq/L 4.5 mEq/L [3.5-5.1 mEq/L] (09/20/17 3:57 AM) (08/31/17 9:57 AM) Chloride Lvl [95-109 109 mEq/L 107 mEq/L mEq/L] (09/20/17 3:57 AM) (08/31/17 9:57 AM) CO2 [24-32 mEq/L] 27 mEq/L 27 mEq/L (09/20/17 3:57 AM) (08/31/17 9:57 AM) AGAP [10.0-20.0 12.2 mEq/L 11.5 mEq/L mEq/L] (09/20/17 3:57 AM) (08/31/17 9:57 AM) CHEM PANEL Most recent to 1 2 oldest [Reference Range]: Creatinine Lvl 0.71 mg/dL 0.79 mg/dL [0.50-1.40 mg/dL] (09/20/17 3:57 AM) (08/31/17 9:57 AM) eGFR 95 mL/min/1.73m2 1 91 mL/min/1.73m2 2 *NA* *NA* (09/20/17 3:57 AM) (08/31/17 9:57 AM) BUN [7-22 mg/dL] 15 mg/dL 15 mg/dL (09/20/17 3:57 AM) (08/31/17 9:57 AM) Glucose Lvl [70-99 96 mg/dL 80 mg/dL mg/dL] (09/20/17 3:57 AM) (08/31/17 9:57 AM) Calcium Lvl 7.5 mg/dL 8.4 mg/dL [8.5-10.5 mg/dL] *LOW* *LOW* (09/20/17 3:57 AM) (08/31/17 9:57 AM) 1Result Comment: The eGFR is calculated using [...] 2 oldest [Reference Range]: WBC [3.7-10.4 K/CMM] 7.7 K/CMM 6.4 K/CMM (09/20/17 3:57 AM) (08/31/17 9:57 AM) RBC [4.70-6.10 4.05 M/CMM 4.84 M/CMM M/CMM] *LOW* (08/31/17 9:57 AM) (09/20/17 3:57 AM) Hgb [14.0-18.0 g/dL] 12.7 g/dL 15.3 g/dL *LOW* (08/31/17 9:57 AM) (09/20/17 3:57 AM) Hct [42.0-54.0 %] 37.7 % 45.0 % *LOW* (08/31/17 9:57 AM) (09/20/17 3:57 AM) MCV [80.0-94.0 fL] 93.2 fL 93.1 fL (09/20/17 3:57 AM) (08/31/17 9:57 AM) MCH [27.0-31.0 pg] 31.4 pg 31.6 pg *HI* *HI* (09/20/17 3:57 AM) (08/31/17 9:57 AM) MCHC [32.0-36.0 33.7 g/dL 33.9 g/dL g/dL] (09/20/17 3:57 AM) (08/31/17 9:57 AM) RDW [11.5-14.5 %] 13.3 % 13.3 % (09/20/17 3:57 AM) (08/31/17 9:57 AM) MPV [7.4-10.4 fL] 7.9 fL 8.2 fL (09/20/17 3:57 AM) (08/31/17 9:57 AM) Platelet [133-450 147 K/CMM 191 K/CMM K/CMM] (09/20/17 3:57 AM) (08/31/17 9:57 AM) Segs [45.0-75.0 %] 62.6 % 59.7 % (09/20/17 3:57 AM) (08/31/17 9:57 AM) Lymphocytes 24.1 % 28.4 % [20.0-40.0 %] (09/20/17 3:57 AM) (08/31/17 9:57 AM) Monocytes [2.0-12.0 12.9 % 9.8 % %] *HI* (08/31/17 9:57 AM) (09/20/17 3:57 AM) Eosinophils [0.0-4.0 0.2 % 1.5 % %] (09/20/17 3:57 AM) (08/31/17 9:57 AM) Basophils [0.0-1.0 0.2 % 0.6 % %] (09/20/17 3:57 AM) (08/31/17 9:57 AM) Segs-Bands # 4.8 K/CMM 3.8 K/CMM [1.5-8.1 K/CMM] (09/20/17 3:57 AM) (08/31/17 9:57 AM) Lymphocytes # 1.9 K/CMM 1.8 K/CMM [1.0-5.5 K/CMM] (09/20/17 3:57 AM) (08/31/17 9:57 AM) Monocytes # [0.0-0.8 1.0 K/CMM 0.6 K/CMM K/CMM] *HI* (08/31/17 9:57 AM) (09/20/17 3:57 AM) Eosinophils # 0.1 K/CMM [0.0-0.5 K/CMM] (08/31/17 9:57 AM) Immunizations Given and Recorded Vaccine Date Status [...] BEVERAGES D/T GASTRIC SLEEVE Assessment and Plan Extracted from: Title: Progress Note Author: Rachele Morales MD Date: 09/20/17 71 y/o morbidly obese M with hx of gastric sleeve in 01/2017, HTN, arrhythmia on metoprolol, GERD, nephrolithiasis and RELL on CPAP, presented with progressive right hip pain secondary to osteoarthritis, and underwent Right total hip arthroplasty. 1.Preop examination - please refer to consult note from 08/31/17 for details 2.Right hip pain 3.S/P total hip arthroplasty - POD #1 . c/w multimodal pain control. - onaspirin 325mg bidfor DVT ppx - complete 24 hrs periop abx for ppx per surgeon - c/w PT/OT 4.HTN (hypertension) - patient's blood pressure is on the lower side today, however need to continue B-german perioperatively. Hold dose of 50mg metoprolol XL daily, and instead give lower dose of 12.5mg daily today. 5.Irregular heart beat -c/w metoprolol XLfor rate control, however at lower dose today due to low BP i.e. 12.5mg daily 6.RELL (obstructive sleep apnea) - c/w home CPAP at night. 7.Obesity - s/p gastricsleeve surgery in 01/2017.Resume home vitamin doses on discharge 8.GERD (gastroesophageal reflux disease) - c/w pantoprazole 40mg daily 9.Postoperative anemia due to acute blood loss - no e/o active bleeding. Hb drop noted. Transfuse if Hb < 7.0 or patient symptomatic. Iron and Vit b12, folate rich diet recommended. aspirin bid pending pain control, PT clearance - defer to primary Extracted from: Title: Consult Note Author: Maebl Tello DO Date: 08/31/17 1.Preop examination -Type of surgery: Righttotal hip arthroplasty, intermediate risk -Surgery specific medical issues:Hypertension -Physical exam concerns:None -Patient is able to complete greater than 4 METs without cardiovascular symptoms(stairs) -Baseline EKG reveals normal sinus rhythm -Outpatient tax audit manager:Dr. Romano -Revised cardiac index score is 0 thus putting the patient on a 0.4% risk of major perioperative cardiac event -Patient is considered a low perioperative cardiovascular risk for this intermediate risk procedure, will ask Dr. Romano for his cardiac report including a left heart caththe patient reports was done in October 2016. -The risks and benefitsof surgery were discussed with the patient 2.Right hip pain Patient is to undergoright total hip arthroplasty onSeptember 19, 2017by 3.HTN (hypertension) Blood pressure is controlled continue with metoprolol 4.Irregular heart beat Patient does not recall the arrhythmia buthe does take metoprolol 50 mg daily continue this for now 5.RELL (obstructive sleep apnea) Patient uses CPAP, the patient was encouraged to bring the CPAP with him on the day of surgery 6.Obesity Status post gastric sleevepatient currently takes avitaminwhich she is to hold week prior to surgery 7.GERD (gastroesophageal reflux disease) Continue withProtonix 40 mg daily [facility] hospitalist is a sales operations consultant, please call [phone] with questions or concerns. Addendum by Cathy Ghulam was previously seen byDr. Segundo [facility] deemed an acceptable Elisha surgical risk at that time. Mabel Gaonacynthia AMAYA on 09/04/2017 14:24 CDT
--- NOTE | 2018-08-12 16:17 | Diagnostic Imaging Report ---
EXAMINATION: CHEST 2 VIEWS INDICATION: Right posterior rib pain. COMPARISON: None FINDINGS: TUBES and LINES: None. LUNGS: Lungs are well inflated. Lungs are clear. There is no evidence of pneumonia or pulmonary edema. PLEURA: No pleural effusion or pneumothorax. HEART AND MEDIASTINUM: The cardiomediastinal silhouette is unremarkable. BONES AND SOFT TISSUES: No acute osseous abnormality. No evidence of displaced rib fracture. UPPER ABDOMEN: No free air under the diaphragm. IMPRESSION: No acute radiographic abnormality. Signed by: Dr. Ryanne Morales MD on 08/12/2018 4:14 PM
[2018-08-12 16:29] LABS: BILIRUBIN,URINE 1+ (NEGATIVE); COLOR,URINE ORANGE (YELLOW); KETONES,URINE 1+ (NEGATIVE); LEUKOCYTE ESTERASE ,URINE NEGATIVE (NEGATIVE); NITRITE,URINE NEGATIVE (NEGATIVE); PROTEIN,URINE DIPSTICK TRACE (NEGATIVE); URINE UROBILINOGEN 8 mg/dL (0.2 - 1)
[2018-08-12 16:37] LABS: BACTERIA,URINE RARE /HPF; CLARITY,URINE CLEAR (CLEAR); EPITHELIAL CELLS,URINE FEW /LPF; MUCUS,URINE MODERATE (RARE); RBC,URINE 0-5 /HPF (0-5); WBC,URINE (MAN) 0-5 /HPF (0-5)
[2018-08-12 18:43] LABS: BASOPHILS % 0.2 % (0.0-1.0); EOSINOPHILS % 0.2 % (0.0-6.0); HEMATOCRIT 44.2 % (38.2-49.6); HEMOGLOBIN 15.1 g/dL (14.0-18.0); LYMPHOCYTES # (AUTO) 0.9 (1.0-3.2); LYMPHOCYTES % 15.8 % (18.0-39.1); MEAN CORPUSCULAR HEMOGLOBIN 30.9 pg (28-32); MEAN CORPUSCULAR HGB CONC 34.2 g/dL (31-35); MEAN CORPUSCULAR VOLUME 90.6 fL (81-99); MONOCYTES # (AUTO) 0.5 (0.2-0.8); MONOCYTES % 8.9 % (4.4-11.3); NEUTROPHILS # (AUTO) 4.2 (2.1-6.9); NEUTROPHILS % 74.7 % (38.7-80.0); PLATELET COUNT 173 x10e3/uL (140-360); RED BLOOD COUNT 4.88 x10e6/uL (4.3-5.7); RED CELL DISTRIBUTION WIDTH 13.3 % (11.7-14.4)
[2018-08-12 19:21] LABS: ALANINE AMINOTRANSFERASE 14 IU/L (0-55); ALBUMIN 3.2 g/dL (3.5-5.0); ALBUMIN/GLOBULIN RATIO 0.8 (0.8-2.0); ALKALINE PHOSPHATASE 98 IU/L (40-150); AMYLASE 52 U/L (25-125); ANION GAP 15.2 mmol/L (8-16); BLOOD UREA NITROGEN 18 mg/dL (7-26); BUN/CREATININE RATIO 21 (6-25); CALCIUM 9.2 mg/dL (8.4-10.2); CARBON DIOXIDE 25 mmol/L (22-29); CHLORIDE 102 mmol/L (98-107); CREATINE KINASE 11 IU/L (30-200); CREATININE, SERUM 0.84 mg/dL (0.72-1.25); EST GLOMERULAR FILTRATION RATE > 60 ML/MIN (60-); GLUCOSE 151 mg/dL (74-118); LIPASE 20 U/L (8-78); POTASSIUM 4.2 mmol/L (3.5-5.1); SODIUM 138 mmol/L (136-145)
[2018-08-12 20:23] VITALS: BP 127/79
== END 2018-08-12 19:55 | disposition home or self-care (01) ==
LOC: ER 15:09
DX: R10.9 Unspecified abdominal pain (principal); R11.0 Nausea; M54.5 Low back pain; I48.91 Unspecified atrial fibrillation; K21.9 Gastro-esophageal reflux disease without esophagitis; Z85.038 Personal history of other malignant neoplasm of large intestine
CPT/HCPCS: 36415; 71046; 80053; 81001; 82150; 82550; 82553; 83690; 84484; 85025; 93005; 99283